=== PATIENT | male | born 1955 | race Hispanic/Latino ===

== ENCOUNTER 2016-12-06 03:38 | Observation (INO) | payer MEDICARE, BC ==
[2016-12-06 03:52] VITALS: BP 122/74; PULSE 95; RESP 20; O2SAT 97
[2016-12-06] MEDS ORDERED: Sodium Chloride 0.9% 2,000 ML IV STA (04:21)
[2016-12-06 04:50] LABS: BASO % 0.8 % (0.0-2.0); EOS # 0.1 K/uL (0.0-0.7); HEMOGLOBIN 14.7 g/dL (12.0-18.0); LYMPH # 1.6 K/uL (1.0-4.3); LYMPH % 27.6 % (20.0-40.0); MEAN CELL VOLUME 86.9 fl (80.0-94.0); MEAN CORPUSCULAR HEMOGLOBIN 29.5 pg (27.0-31.0); MEAN PLATELET VOLUME 8.1 fl (7.2-11.7); MONO # 0.4 K/uL (0.0-0.8); MONO % 7.5 % (0.0-10.0); NEUT # 3.5 K/uL (1.8-7.0); NEUT % 62.1 % (50.0-75.0); NRBC % 0.1 % (0.0-0.0); RBC 4.96 Mil/uL (4.40-5.90); RED CELL DISTRIBUTION WIDTH 15.7 % (11.5-14.5); WHITE BLOOD COUNT 5.6 K/uL (4.8-10.8)
[2016-12-06 05:01] LABS: BLOOD UREA NITROGEN 11 mg/dl (9-20); CALCIUM 9.2 mg/dL (8.4-10.2); GFR AFRICAN-AMERICAN > 60; GFR NON-AFRICAN AMERICAN > 60
--- NOTE | 2016-12-06 05:05 | ED PDOC ---
HPI: Psych/Substance Abuse Time Seen by Provider: 12/06/16 03:50 Chief Complaint (Nursing): Alcohol Ingestion Chief Complaint (Provider): Alcohol withdrawal History Per: Patient History/Exam Limitations: no limitations Additional Complaint(s): Juan C Heath, a 61 year old male, who is an alcoholic and has a past medical history of diabetes and presents to the ED for alcohol withdrawal. The patient states that he drinks three 6 packs of beer a day but his last drink was yesterday at 8pm. He states that he normally take ativan but he ran out and was unable to get a refill in the middle of the night. Denies homicidal, suicidal ideation. Past Medical History Reviewed: Historical Data, Nursing Documentation, Vital Signs Vital Signs: Last Vital Signs Temp 100.2 F H 12/06/16 03:48 Pulse 95 H 12/06/16 03:48 Resp 20 12/06/16 03:48 BP 122/74 12/06/16 03:48 Pulse Ox 97 12/06/16 03:48 - Medical History PMH: Anxiety, Bipolar Disorder, Depression, Diabetes, Gall Bladder Disease (s/p Lap Jessica), HTN, Hypercholesterolemia Denies: HIV, Chronic Kidney Disease - Surgical History Surgical History: Cholecystectomy - Family History Family History: States: Unknown Family Hx - Immunization History Hx Tetanus Toxoid Vaccination: No Hx Influenza Vaccination: Yes Hx Pneumococcal Vaccination: No - Home Medications Home Medications: Ambulatory Orders Medication Instructions Recorded Exenatide Microspheres [Bydureon] 2 mg SC Q7D #0 joseph 04/08/15 Folic Acid 1 mg PO DAILY #0 tab 04/08/15 Gabapentin 800 mg PO BID #0 tab 04/08/15 Gabapentin [Neurontin] 800 mg PO BID #0 cap 04/08/15 Insulin Detemir [Levemir] 25 units SC HS #0 vial 04/08/15 Multivitamin [Multi-Delyn Liquid] 5 ml PO DAILY #0 syr 04/08/15 QUEtiapine [SEROquel] 50 mg PO HS #0 tab 04/08/15 Thiamine [Vitamin B1 Tab] 100 mg PO DAILY #0 tab 04/08/15 chlordiazePOXIDE [Librium] 10 mg PO Q8 #0 cap 04/08/15 cloNIDine [Catapres] 0.1 mg PO Q12 #0 tab 04/08/15 - Allergies Allergies/Adverse Reactions: Allergies Allergy/AdvReac Type Severity Reaction Status Date / Time No Known Allergies Allergy Verified 06/28/14 17:50 Review of Systems Psych: Positive for: Other (Denies homicidal ideations). Negative for: Suicidal ideation Physical Exam - Reviewed Nursing Documentation Reviewed: Yes Vital Signs Reviewed: Yes - Physical Exam Appears: Positive for: Non-toxic, No Acute Distress (Anxious appearing; tremulous) Head Exam: Positive for: ATRAUMATIC, NORMAL INSPECTION, NORMOCEPHALIC Skin: Positive for: Normal Color, Warm, Dry, Diaphoresis Eye Exam: Positive for: Normal appearance, EOMI, PERRL ENT: Negative for: Normal ENT Inspection (Tongue fasciculations) Neck: Positive for: Normal, Painless ROM, Supple Cardiovascular/Chest: Positive for: Regular Rate, Rhythm, Chest Non Tender. Negative for: Tachycardia Respiratory: Negative for: Normal Breath Sounds, Wheezing, Respiratory Distress Gastrointestinal/Abdominal: Positive for: Normal Exam, Bowel Sounds, Soft. Negative for: Tenderness, Guarding, Rebound Back: Positive for: Normal Inspection Extremity: Positive for: Normal ROM. Negative for: Tenderness, Pedal Edema, Deformity, Swelling Neurologic/Psych: Positive for: Alert, Oriented, Gait - Laboratory Results Result Diagrams: 12/06/16 04:46 12/06/16 04:46 - ECG O2 Sat by Pulse Oximetry: 97 (RA) Pulse Ox Interpretation: Normal Medical Decision Making Medical Decision Makin Initial impression: 61 year old male presenting with alcohol withdrawal Initial Plan: * Alcohol serum * Basic metabolic Panel * Urine Drug Screen * CBC * Ativan 2mg IVP * Librium 50mg PO * NS 2000mls IV 1000mls/hr * Reevaluation 630 Pt. no longer tremulous. Vitals improved. Referral to detox facilities given. Return precautions given. Scribe Attestation Documented by Marium Parrish acting as a scribe for Zachary Hyman MD. Provider Attestation All medical record entries made by the Scribe were at my direction and personally dictated by me. I have reviewed the chart and agree that the record accurately reflects my personal performance of the history, physical exam, medical decision making, and the department course for this patient. I have also personally directed, reviewed, and agree with the discharge instructions and disposition. Disposition - Clinical Impression Clinical Impression: Alcohol dependence with withdrawal - Disposition Referrals: Keith Márquez MD [Primary Care Provider] - Alcoholics Anonymous [Outside] Disposition: Routine/Home Disposition Time: 06:39 Condition: IMPROVED Instructions: Alcohol Withdrawal (ED), Abuse of Alcohol (ED)
[2016-12-06 06:51] VITALS: TEMP 98.3
--- NOTE | 2016-12-13 10:40 | CARD ---
APPROVED REPORT EKG Measurement Heart [id number] CO 118P50 [id number] <Conclusion> Normal sinus rhythm Nonspecific T wave abnormality Prolonged QT Abnormal ECG
== END 2016-12-06 06:57 | disposition home or self-care (01) ==
LOC: H.ER 03:38 → H.EROBSV 04:21
PROVIDERS: ADMIT Emergency Medicine; ATTEND Emergency Medicine
DX: F10.239 Alcohol dependence with withdrawal, unspecified (principal); E11.9 Type 2 diabetes mellitus without complications; E78.00 Pure hypercholesterolemia, unspecified; F31.9 Bipolar disorder, unspecified; I10 Essential (primary) hypertension; F32.9 Major depressive disorder, single episode, unspecified; F41.9 Anxiety disorder, unspecified; K82.9 Disease of gallbladder, unspecified; Z79.4 Long term (current) use of insulin; Z79.899 Other long term (current) drug therapy
CPT/HCPCS: 80048; 85025; 96361; 96374; 99282; G0378; G0480; J2060; J7040

== ENCOUNTER 2016-12-29 06:03 | Inpatient (IN) | payer MEDICARE, BC ==
[2016-12-29 06:04] VITALS: BMI 28.1
--- NOTE | 2016-12-29 06:39 | ED PDOC ---
HPI: Psych/Substance Abuse Time Seen by Provider: 12/29/16 06:15 Chief Complaint (Nursing): Psychiatric Evaluation Chief Complaint (Provider): Alcohol Withdrawal and Suicidal Ideatons History Per: Patient History/Exam Limitations: no limitations Current Symptoms Are (Timing): Still Present Additional Complaint(s): Juan C Heath, a 61 yea old male who has a past medical history of alcohol abuse and depression presents to the ED for withdrawal and suicidal ideations x1 day. The patient states that he drinks alot of alcohol everyday and his last drink was 10 hours ago. Patient is complaining of feeling dizzy, shaky and sweaty. He states that he thinks he's withdrawing and had suicidal thoughts today. the patient reports that he had intentions take to take sleeping pills but did not have any pills at home. PMD: Dr. Márquez Past Medical History Reviewed: Historical Data, Nursing Documentation, Vital Signs Vital Signs: Last Vital Signs Temp 98.0 F 12/29/16 06:10 Pulse 91 H 12/29/16 06:10 Resp 18 12/29/16 06:10 BP 159/82 H 12/29/16 06:10 Pulse Ox 98 12/29/16 06:10 - Medical History PMH: Anxiety, Bipolar Disorder, Depression, Diabetes, Gall Bladder Disease (s/p Lap Jessica), HTN, Hypercholesterolemia Denies: Hepatitis, HIV, Chronic Kidney Disease, Seizures, Sexually Transmitted Disease Other PMH: Alcohol abuse - Surgical History Surgical History: Cholecystectomy Other surgeries: left ear surgery; thoracic surgery - Family History Family History: States: Unknown Family Hx - Immunization History Hx Tetanus Toxoid Vaccination: No Hx Influenza Vaccination: Yes Hx Pneumococcal Vaccination: No - Home Medications Home Medications: Ambulatory Orders Medication Instructions Recorded QUEtiapine [SEROquel] 50 mg PO HS #0 tab 04/08/15 Insulin Aspart [Novolog] 15 unit SC TID 12/06/16 Insulin Detemir [Levemir] 50 units SC HS 12/06/16 Gabapentin [Neurontin] 400 mg PO TID #90 cap 12/13/16 Sertraline [Zoloft] 100 mg PO DAILY #60 tab 12/13/16 traZODone [Desyrel] 100 mg PO HS #30 tab 12/13/16 - Allergies Allergies/Adverse Reactions: Allergies Allergy/AdvReac Type Severity Reaction Status Date / Time No Known Allergies Allergy Verified 12/06/16 07:35 Review of Systems ROS Statement: Except As Marked, All Systems Reviewed And Found Negative Constitutional: Positive for: Sweats, Other (Withdrawal) Neurological: Positive for: Dizziness Psych: Positive for: Suicidal ideation Physical Exam - Reviewed Nursing Documentation Reviewed: Yes Vital Signs Reviewed: Yes - Physical Exam Appears: Positive for: Non-toxic, No Acute Distress Head Exam: Positive for: ATRAUMATIC, NORMAL INSPECTION, NORMOCEPHALIC Skin: Positive for: Normal Color, Warm, Dry, Diaphoresis Eye Exam: Positive for: Normal appearance, EOMI, PERRL ENT: Positive for: Normal ENT Inspection Neck: Positive for: Normal, Supple Cardiovascular/Chest: Positive for: Chest Non Tender. Negative for: Tachycardia Respiratory: Positive for: Normal Breath Sounds. Negative for: Wheezing, Respiratory Distress Gastrointestinal/Abdominal: Positive for: Normal Exam, Bowel Sounds, Soft. Negative for: Tenderness, Guarding, Rebound Back: Positive for: Normal Inspection Extremity: Positive for: Normal ROM. Negative for: Tenderness, Pedal Edema, Deformity, Swelling Neurologic/Psych: Positive for: Alert, Oriented, Gait, Other (Tremors in upper extremities.). Negative for: Motor/Sensory Deficits - ECG O2 Sat by Pulse Oximetry: 98 (RA) Pulse Ox Interpretation: Normal Medical Decision Making Medical Decision Makin Initial Impression: 61 year old male presenting with alcohol withdrawal and suicidal ideation Initial Plan: * EKG * Alcohol Serum * Comp Metabolic Panel * Drug Screen * Udip * CBC * Ativan 2g IV * 1:1 Observation * Reevaluation Patient will require medical clearance, treatment of withdrawals and crisis evaluation for possible psychiatric admission. Scribe Attestation Documented by Marium Parrish acting as a scribe for Jacoby Masters MD. Provider Attestation: All medical record entries made by the Scribe were at my direction and personally dictated by me. I have reviewed the chart and agree that the record accurately reflects my personal performance of the history, physical exam, medical decision making, and the department course for this patient. I have also personally directed, reviewed, and agree with the discharge instructions and disposition. Disposition - Clinical Impression Clinical Impression: Alcohol withdrawal, Alcohol abuse, Depression - Patient ED Disposition Is Patient to be Admitted: Transfer of Care Counseled Patient/Family Regarding: Studies Performed, Diagnosis - Disposition Disposition: Transfer of Care Disposition Time: 07:00 Condition: FAIR Forms: [employer] (Serbian) Patient Signed Over To: Hoa Montaño
[2016-12-29] MEDS ORDERED: Sodium Chloride 0.9% 1,000 ML IV STA (06:58)
--- NOTE | 2016-12-29 07:04 | ED PDOC ---
- ECG O2 Sat by Pulse Oximetry: 98 (RA) Medical Decision Making Medical Decision Making: received patient from Dr. Masters. Patient has h/o chronic alcohol use who has had history of admission for withdrawal and depression. He c/o suicidal ideations. He is pending medical clearance for crisis evaluation. He was given Ativan for shakiness. Disposition - Clinical Impression Clinical Impression: Alcohol withdrawal, Alcohol abuse, Depression - Disposition Condition: FAIR Forms: [employer] (Eritrean)
[2016-12-29 07:23] LABS: BASO % 0.3 % (0.0-2.0); EOS # 0.2 K/uL (0.0-0.7); EOS % 3.2 % (0.0-4.0); HEMOGLOBIN 13.7 g/dL (12.0-18.0); LYMPH # 1.1 K/uL (1.0-4.3); LYMPH % 17.1 % (20.0-40.0); MEAN CELL VOLUME 85.4 fl (80.0-94.0); MEAN CORPUSCULAR HEMOGLOBIN 29.2 pg (27.0-31.0); MEAN CORPUSCULAR HGB CONC 34.2 g/dL (33.0-37.0); MEAN PLATELET VOLUME 8.8 fl (7.2-11.7); MONO # 0.4 K/uL (0.0-0.8); MONO % 6.4 % (0.0-10.0); NEUT # 4.7 K/uL (1.8-7.0); NRBC % 0.1 % (0.0-0.0); RBC 4.68 Mil/uL (4.40-5.90); RED CELL DISTRIBUTION WIDTH 14.7 % (11.5-14.5); WHITE BLOOD COUNT 6.5 K/uL (4.8-10.8)
[2016-12-29 07:40] LABS: ALB/GLOB RATIO 1.6 (1.0-2.1); ALBUMIN 4.3 g/dL (3.5-5.0); ALT/SGPT 70 U/L (21-72); AST/SGOT 32 U/L (17-59); BLOOD UREA NITROGEN 9 mg/dl (9-20); CALCIUM 10.1 mg/dL (8.4-10.2); GFR AFRICAN-AMERICAN > 60; GFR NON-AFRICAN AMERICAN > 60
[2016-12-29 08:29] LABS: BARBITURATES, UR NEGATIVE (NEGATIVE); BENZODIAZEPINES, UR NEGATIVE (NEGATIVE); OPIATES, UR NEGATIVE (NEGATIVE); PHENCYCLIDINE, UR NEGATIVE (NEGATIVE)
[2016-12-29 13:14] VITALS: O2SAT 96
--- NOTE | 2016-12-29 13:28 | RAD ---
PROCEDURE: CHEST RADIOGRAPH, 1 VIEW HISTORY: for admission COMPARISON: 07/16/2014. FINDINGS: LUNGS: Clear. PLEURA: No pneumothorax or pleural fluid seen. CARDIOVASCULAR: No radiographic findings to suggest acute or significant cardiovascular disease. OSSEOUS STRUCTURES: No significant abnormalities. VISUALIZED UPPER ABDOMEN: Normal. OTHER FINDINGS: None. IMPRESSION: No active disease. No acute/significant interval changes.
[2016-12-29] MEDS: Insulin Detemir 100 Units/ml Inj SC SCH (21:58)
[2016-12-30 07:41] LABS: HDL CHOLESTEROL 47 MG/DL (30-70)
[2016-12-30 07:52] LABS: LDL CHOLESTEROL 117 mg/dL (0-129)
[2016-12-30] MEDS ORDERED: INSULIN ASPART 10 UNIT SC SCH (09:00)
[2016-12-30] MEDS: Insulin Lispro (humaLOG) 100 Units/ml Inj SC SCH ×3 (09:45→17:37)
--- NOTE | 2016-12-30 11:15 | PCM.PSYCH ---
Initial Psychiatric Evaluation - Initial Psychiatric Evaluation Type of Admission: Voluntary Legal Status: Capacity Chief Complaint (in patient's own words): "I've been feeling depressed." Patient's Reaction to Hospitalization: HPI: 61 year old, Single, , Male referred to ED for Anxiety, Suicidal Thoughts with a plan, and Alcohol Withdrawal. In the ER, pt admitted to drinking seven bottles of 24 oz Harriosn last night in order to kill himself, and had an active plan of taking over the counter sleeping pills in order to .Pt stated that he has a long history of Depression. Pt stated that 02/05 has had a traumatic impact on him as well as flashbacks since he worked a [place] blocks from the [employer], and ever since 02/05, pt reported feeling trapped and always feel like he is in danger. Pt stated that his cat a few years ago, and ever since his cats , he has been having flashbacks of the times spent with his cat and feels responsibility for his cats . Patient reports that he was non-complaint with medications because he did not want to mix the alcohol w/ the medications. PPHx: Pt was admitted at [facility] from 04/29-05/06 and 07/16/2014. Admitted to [facility] from 12/07/16-12/13/16. H/o suicide attempts- As per patient, he has ingested 64 pills of sleeping pills over five years ago which he almost succeeded, and has taken aspirin at the age of [age] years old. 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 On disability. Lives alone. +Alcohol abuse, denies drug/ cig. Current Medications: Active Medications Generic Name Dose Route Start Last Admin Trade Name Freq PRN Reason Stop Dose Admin Acetaminophen 650 mg 12/29/16 16:29 Tylenol 325mg Tab PO Q6 PRN headache/pain Atorvastatin Calcium 20 mg 12/29/16 22:00 12/29/16 21:58 Lipitor PO 20 mg HS JM Administration Benztropine Mesylate 0.5 mg 12/29/16 17:00 12/30/16 09:05 Cogentin PO 0.5 mg BID JM Administration Gabapentin 800 mg 12/29/16 21:15 12/30/16 09:05 Neurontin PO 800 mg BID JM Administration Insulin Detemir 30 units 12/29/16 22:00 12/29/16 21:58 Levemir SC 30 unit HS [facility] Administration Insulin Human Lispro 10 units 12/30/16 09:15 Humalog SC TID [facility] Lorazepam 0.5 mg 12/29/16 16:29 12/29/16 23:26 Ativan PO 0.5 mg Q6 PRN Administration Anxiety Risperidone 1 mg 12/29/16 17:00 12/30/16 09:04 Risperdal Tab PO 1 mg BID JM Administration Sertraline HCl 200 mg 12/30/16 09:00 12/30/16 09:07 Zoloft PO 200 mg DAILY JM Administration Past Psychiatric History - Past Psychiatric History Previous Treatment History: Inpatient Pertinent Medical Hx (Current Medical&Sleep Prob, Allergies): Allergies Allergy/AdvReac Type Severity Reaction Status Date / Time No Known Allergies Allergy Verified 12/06/16 07:35 Insulin Aspart [Novolog] 20 unit SC TID 12/06/16 Insulin Detemir [Levemir] 50 units SC HS 12/06/16 Atorvastatin [Lipitor] 20 mg PO HS 12/29/16 Benztropine [Cogentin] 0.5 mg PO BID 12/29/16 Exenatide Microspheres [Bydureon Pen] 2 mg SC SAT 12/29/16 Gabapentin [Neurontin] 800 mg PO BID 12/29/16 LORazepam [Ativan] 1 mg PO BID 12/29/16 Mecobal/Levomefolat Ca/B6 Phos [Foltanx Tablet] 1 tab PO DAILY 12/29/16 Risperidone [Risperdal] 1 mg PO BID 12/29/16 Sertraline [Zoloft] 100 mg PO BID 12/29/16 hydrOXYzine HCl [Atarax] 50 mg PO HS 12/29/16 Review of Systems - Psychiatric Psychiatric: As Per HPI, Abnormal Sleep Pattern, Anhedonia, Anxiety, Change in Appetite, Depression, Difficulty Concentrating, Hopelessness, Irritability, Mood Swings, Suicidal Ideation Mental Status Examination - Personal Presentation Personal Presentation: Looks stated age - Affect Affect: Constricted - Motor Activity Motor Activity: Calm - Reliability in Providing Information Reliability in Providing Information: Good - Speech Speech: Organized - Mood Mood: Depressed, Anxious - Formal Thought Process Formal Thought Process: No Impairment - Obsessions/Compulsions Obsessions: No Compulsions: No - Cognitive Functions Orientation: Person, Place, Situation, Time Sensorium: Alert Attention/Concentration: Attentive Judgement: Intact, as evidence by: Insight regarding need for hospitalization Memory: Recent intact, as evidence by: Ability to recall events of the day, Remote intact, as evidenced by: Abilit to recall sig. life events, Remote intact , as evidenced by: Ability to recall historical events - Risk Risk: Withdrawal, Diminished functioning - Strength & Assets Inventory Strength & Assets Inventory: Cooperative - Limitations Limitations: Living alone DSM 5 DX - DSM 5 DSM 5 Diagnosis: Major Depressive Disorder r/o substance induced mood disorder; Generalized Anxiety Disorder; Alcohol Use Disorder - Recommended/Plan of Treatment Treatment Recommendations and Plan of Treatment: Major Depressive Disorder r/o substance induced mood disorder; Generalized Anxiety Disorder; Alcohol Use Disorder -Admit to psychiatry -Ativan for ETOH w/drawal; no current symptoms of ETOH w/drawal -Zoloft 200 mg PO Daily -Trazodone 100 mg PO HS -Hospitalist consult -Individual and group therapy -Disposition planning -No 1:1 indicated at this time Projected ELOS: 3-5 days Discharge Plan and Discharge Criteria: Discharge when psychiatrically stable - Smoking Cessation Smoking Cessation Initiated: No Reason for not providing: Not indicated
--- NOTE | 2016-12-30 14:26 | CARD ---
APPROVED REPORT EKG Measurement Heart [id number] 118P24 [id number] <Conclusion> Normal sinus rhythm Normal ECG artefact present
--- NOTE | 2016-12-30 19:18 | CP.PCM.CON ---
History of Present Illness - History of Present Illness History of Present Illness: 61 year old male PMH IDDM, generalized anxiety disorder, prior suicide attempts , L ear hearing loss, admitted to psych for depression, suicide attempt and alcohol abuse. HD stable NAD PMD: Dr. Márqeuz ROS: per HPI, 14 systems reviewed and negative PMH: IDDM, generalized anxiety disorder, prior suicide attempt, L ear hearing loss, PSH: benign lung mass excision, L ear FH: CAD, VT SH: ETOH 15 year history of 2 24oz beers daily, in addition to rum on occasion. Has been admitted to Rehab Allergies: NKDA Meds: as below Vitals: reviewed and currently stable Temp Pulse Resp BP Pulse Ox 97.9 F 86 18 135/81 96 12/30/16 16:11 12/30/16 16:11 12/30/16 16:11 12/30/16 16:11 12/29/16 13:13 Exam: GEN: WDWN, HEENT: NCAT, PERRL, EOMI NECK: supple, no JVD, no lymphadenopathy CARDIAC: +S1S2 RRR LUNG: CTAB No WRR ABD: SOFT NT ND BSX4 NO MASSES NO HSM EXT: +pedal pulses, equal strength NEURO: AAOx3 SKIN warm, dry PSYCH normal mood, normal affect Labs: 12/29/16 07:21 12/29/16 07:21 Assessment and Plan: 61 year old male PMH IDDM, generalized anxiety disorder, prior suicide attempts , L ear hearing loss, admitted to psych for depression, suicide attempt and alcohol abuse. IDDM accuchecks cont ISS Depression and SI management per psychiatry team Past Patient History - Tetanus Immunizations Tetanus Immunization: Unknown - Past Medical History & Family History Past Medical History?: Yes - Past Social History Smoking Status: Never Smoked - CARDIAC Hx Cardiac Disorders: Yes Hx Hypercholesterolemia: Yes Hx Hypertension: Yes - PULMONARY Hx Respiratory Disorders: Yes Hx Bronchitis: Yes Hx Tuberculosis: No - NEUROLOGICAL Hx Neurological Disorder: No HX Cerebrovascular Accident: No Hx Seizures: No - HEENT Hx Deafness: Yes (left ear, very [place]) - RENAL Hx Chronic Kidney Disease: No - ENDOCRINE/METABOLIC Hx Endocrine Disorders: Yes Hx Diabetes Mellitus Type 2: Yes - HEMATOLOGICAL/ONCOLOGICAL Hx Cancer: No Hx Human Immunodeficiency Virus (HIV): No - INTEGUMENTARY Hx Dermatological Problems: No - MUSCULOSKELETAL/RHEUMATOLOGICAL Hx Falls: No - GASTROINTESTINAL Hx Gall Bladder Disease: Yes (s/p Lap Jessica) Hx Gastritis: Yes - GENITOURINARY/GYNECOLOGICAL Hx Genitourinary Disorders: No Hx Sexually Transmitted Disorders: No - PSYCHIATRIC Hx Substance Use: No - SURGICAL HISTORY Hx Cholecystectomy: Yes - ANESTHESIA Hx Anesthesia: Yes Hx Anesthesia Reactions: No Meds Allergies/Adverse Reactions: Allergies Allergy/AdvReac Type Severity Reaction Status Date / Time No Known Allergies Allergy Verified 12/06/16 07:35 - Medications Medications: Current Medications Acetaminophen (Tylenol 325mg Tab) 650 mg PO Q6 PRN PRN Reason: headache/pain Atorvastatin Calcium (Lipitor) 20 mg PO [facility] Last Admin: 12/29/16 21:58 Dose: 20 mg Gabapentin (Neurontin) 800 mg PO BID [facility] Last Admin: 12/30/16 17:36 Dose: 800 mg Insulin Detemir (Levemir) 30 units SC [facility] Last Admin: 12/29/16 21:58 Dose: 30 unit Insulin Human Lispro (Humalog) 10 units SC TID [facility] Last Admin: 12/30/16 17:37 Dose: 10 unit Lorazepam (Ativan) 0.5 mg PO Q6 PRN PRN Reason: Anxiety Last Admin: 12/29/16 23:26 Dose: 0.5 mg Lorazepam (Ativan) 0.5 mg PO TID [facility] Last Admin: 12/30/16 17:36 Dose: 0.5 mg Sertraline HCl (Zoloft) 200 mg PO DAILY [facility] Last Admin: 12/30/16 09:07 Dose: 200 mg Trazodone HCl (Desyrel) 100 mg PO [facility] Results - Vital Signs Recent Vital Signs: Last Vital Signs Temp 97.9 F 12/30/16 16:11 Pulse 86 12/30/16 16:11 Resp 18 12/30/16 16:11 BP 135/81 12/30/16 16:11 Pulse Ox 96 12/29/16 13:13 - Labs Result Diagrams: 12/29/16 07:21 12/29/16 07:21 Labs: Laboratory Results - last 24 hr 12/29/16 12/30/16 12/30/16 20:25 05:30 05:59 POC Glucose (mg/dL) 201 H 169 H Triglycerides 431 H Cholesterol 209 H LDL Cholesterol Direct 117 HDL Cholesterol 47 12/30/16 12/30/16 12:15 15:53 POC Glucose (mg/dL) 168 H 100 Triglycerides Cholesterol LDL Cholesterol Direct HDL Cholesterol
[2016-12-30] MEDS: Insulin Detemir 100 Units/ml Inj SC SCH (21:21)
[2016-12-31 05:31] VITALS: RESP 20
[2016-12-31] MEDS: Insulin Lispro (humaLOG) 100 Units/ml Inj SC SCH ×3 (08:35→16:48)
--- NOTE | 2016-12-31 12:14 | PCM.PYCHPN ---
Psychiatric Progress Note - Psychiatric Progress Note Patient seen today, length of contact: Patient evaluated, case discussed with team, chart reviewed, 35 min Patient Chief Complaint: "I'm feeling better." Problems Identified/Issues Discussed: Patient reports that his depression and anxiety are improving. Psychoeducation provide re: alcohol abuse. NO SI/HI/AH/VH Medication Change: No Medical Record Reviewed: Yes Mental Status Examination - Cognitive Function Orientation: Person, Place, Situation, Time Memory: Intact Attention: WNL Concentration: WNL Association: WNL Fund of Knowledge: WNL - Mood Mood: Depressed, Anxious - Affect Affect: Broad - Formal Thought Process Formal Thought Process: No Impairment Psychotic Thoughts and Behaviors: NO AH/VH/paranoia/delusions. - Suicidal Ideation Suicidal Ideation: No - Homicidal Ideation Homicidal Ideation: No Goal/Treatment Plan - Goal/Treatment Plan Need for Continued Stay: Remain at risks for inpatient hospitalization, Severe depression anxiety Progress Toward Problem(s) and Goals/Treatment Plan: Major Depressive Disorder r/o substance induced mood disorder; Generalized Anxiety Disorder; Alcohol Use Disorder -Ativan for ETOH w/drawal; no current symptoms of ETOH w/drawal -Zoloft 200 mg PO Daily -Trazodone 100 mg PO HS -Hospitalist consult -Individual and group therapy -Disposition planning -No 1:1 indicated at this time Estimated Date of D/C: 01/01/17
[2016-12-31] MEDS: Insulin Detemir 100 Units/ml Inj SC SCH (21:12)
[2017-01-01 05:53] VITALS: BP 104/72; PULSE 69; TEMP 97.7
[2017-01-01] MEDS: Insulin Lispro (humaLOG) 100 Units/ml Inj SC SCH ×2 (08:34→12:27)
--- NOTE | 2017-01-01 08:45 | PCM.PYCHDC ---
Mental Status Examination - Mental Status Examination Orientation: Person, Place, Situation, Time Memory: Intact Mood: Neutral Affect: Broad Speech: Appropriate Attention: WNL Concentration: WNL Association: WNL Fund of Knowledge: WNL Formal Thought Process: No Impairment Description of patient's judgement and insight: Fair I/J Psychotic Thoughts and Behaviors: NO AH/VH/paranoia/delusions. Suicidal Ideation: No Current Homicidal Ideation?: No Discharge Summary - Discharge Note Reason for Hospitalization: HPI: 61 year old, Single, , Male referred to ED for Anxiety, Suicidal Thoughts with a plan, and Alcohol Withdrawal. In the ER, pt admitted to drinking seven bottles of 24 oz Harrison last night in order to kill himself, and had an active plan of taking over the counter sleeping pills in order to .Pt stated that he has a long history of Depression. Pt stated that 02/05 has had a traumatic impact on him as well as flashbacks since he [place] from [place] [employer], and ever since 02/05, pt reported feeling trapped and always feel like he is in danger. Pt stated that his cat a few years ago, and ever since his cats , he has been having flashbacks of the times spent with his cat and feels responsibility for his cats . Patient reports that he was non-complaint with medications because he did not want to mix the alcohol w/ the medications. PPHx: Pt was admitted at [facility] from 04/29-05/06 of 2013 and 07/16/2014. Admitted to [facility] from 12/07/16-12/13/16. H/o suicide attempts- As per patient, he has ingested 64 pills of sleeping pills over five years ago which he almost succeeded, and has taken aspirin at the age of [age] years old. 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 On disability. Lives alone. +Alcohol abuse, denies drug/ cig. Laboratory Data: Abnormal Lab Results 12/31/16 12/31/16 12/31/16 10:58 15:21 20:10 POC Glucose (mg/dL) 178 H 159 H 90 Consultations:: List each consultation separately and include: 1. Reason for request. 2. Findings. 3. Follow-up Consultations: Medicine consult Summary of Hospital Course include:: 1. Description of specific treatment plan utilized for patients during their course of treatmen. 2. Summarize the time- course for resolution of acute symptoms and/or regressed behaviors. 3. Describe issues identified and worked on during hospitalization. 4. Describe medication utilized. 5. Describe medical problems identified and treated. 6. Reassessment of suicide risk Summary of Hospital Course: Patient admitted to the hospital. He was monitored for ETOH w/drawal. He was stabilized on Zoloft 200 mg PO Daily, Trazodone 100 mg PO HS. Individual and group therapy provided. Patient is currently psychiatrically stable for discharge. - Final Diagnosis (DSM 5) Condition upon Discharge: FAIR DSM 5: Major Depressive Disorder, Alcohol Use Disorder, Generalized Anxiety Disorder Disposition: HOME/ ROUTINE Follow-up Treatment Plan: Major Depressive Disorder r/o substance induced mood disorder; Generalized Anxiety Disorder; Alcohol Use Disorder -Zoloft 200 mg PO Daily -Trazodone 100 mg PO HS -Discharge w/ outpatient follow-up Prescriptions/Medication Reconciliation: Sertraline [Zoloft] 200 mg PO DAILY #60 tab traZODone [Desyrel] 100 mg PO HS #30 tab - Smoking Cessation Smoking Cessation Medication prescribed: No Reason for not providing: Not indicated - Antipsychotic Medications Pt discharged on 2 or more routine antipsychotic medications: No
== END 2017-01-01 13:03 | disposition home or self-care (01) | DRG 881 ==
LOC: H.ER 06:03 → H.ERHOLD 12:17 → H.STEP 14:29
PROVIDERS: ADMIT Psychiatry & Neurology Psychiatry; ATTEND Psychiatry & Neurology Psychiatry
PROC: HZ56ZZZ Individual Psychotherapy for Substance Abuse Treatment, Psychoeducation (ICD-10-PCS; principal; 2016-12-29)
DX: F32.9 Major depressive disorder, single episode, unspecified (principal); R45.851 Suicidal ideations; G62.9 Polyneuropathy, unspecified; E11.9 Type 2 diabetes mellitus without complications; I10 Essential (primary) hypertension; Z79.4 Long term (current) use of insulin; F41.1 Generalized anxiety disorder; H91.92 Unspecified hearing loss, left ear; E78.00 Pure hypercholesterolemia, unspecified; N40.0 Benign prostatic hyperplasia without lower urinary tract symptoms; Z91.14 Patient's other noncompliance with medication regimen; Y90.0 Blood alcohol level of less than 20 mg/100 ml; Z72.89 Other problems related to lifestyle

== ENCOUNTER 2017-02-22 20:52 | Observation (INO) | payer MEDICARE, BC ==
[2017-02-22 20:52] VITALS: BMI 28.1
[2017-02-22 21:01] VITALS: RESP 18
--- NOTE | 2017-02-22 21:03 | ED PDOC ---
HPI: Psych/Substance Abuse Time Seen by Provider: 02/22/17 21:01 Chief Complaint (Nursing): Psychiatric Evaluation Chief Complaint (Provider): crisis eval, SI, etoh History Per: Patient, EMS Additional Complaint(s): 61 year old male presents to ED for crisis evaluation. Patient admits to drinking this evening and is having thoughts of wanting to harm himself. He also states he took 2 ativan at home. Patient offers no acute medical complaints. Past Medical History Reviewed: Historical Data, Nursing Documentation, Vital Signs Vital Signs: Last Vital Signs Temp 98.0 F 02/22/17 20:58 Pulse 119 H 02/22/17 20:58 Resp 18 02/22/17 20:58 BP 142/89 02/22/17 20:58 Pulse Ox 95 02/22/17 20:58 - Medical History PMH: Anxiety, Bipolar Disorder, Depression, Diabetes, Gastritis, HTN, Hypercholesterolemia - Surgical History Surgical History: Cholecystectomy Other surgeries: Left ear surgery, thoracic surgery - Family History Family History: States: No Known Family Hx - Living Arrangements Living Arrangements: With Family - Social History Current smoker - smoking cessation education provided: No Alcohol: > 2 Drinks/Day - Home Medications Home Medications: Ambulatory Orders Medication Instructions Recorded Insulin Aspart [Novolog] 20 unit SC TID 12/06/16 Insulin Detemir [Levemir] 50 units SC HS 12/06/16 Atorvastatin [Lipitor] 20 mg PO HS 12/29/16 Gabapentin [Neurontin] 800 mg PO BID 12/29/16 Sertraline [Zoloft] 200 mg PO DAILY #60 tab 12/31/16 traZODone [Desyrel] 100 mg PO HS #30 tab 12/31/16 - Allergies Allergies/Adverse Reactions: Allergies Allergy/AdvReac Type Severity Reaction Status Date / Time No Known Allergies Allergy Verified 12/06/16 07:35 Review of Systems ROS Statement: Except As Marked, All Systems Reviewed And Found Negative Cardiovascular: Negative for: Chest Pain Respiratory: Negative for: Cough Gastrointestinal: Negative for: Nausea, Vomiting Psych: Positive for: Suicidal ideation, Other (etoh) Physical Exam - Reviewed Nursing Documentation Reviewed: Yes Vital Signs Reviewed: Yes - Physical Exam Appears: Positive for: Well, Non-toxic, No Acute Distress Skin: Negative for: Rash Eye Exam: Positive for: Normal appearance, EOMI, PERRL Cardiovascular/Chest: Positive for: Regular Rate, Rhythm Respiratory: Positive for: Normal Breath Sounds. Negative for: Wheezing, Respiratory Distress Back: Positive for: Normal Inspection Extremity: Positive for: Normal ROM Neurologic/Psych: Positive for: Alert, Oriented - Laboratory Results Result Diagrams: 02/22/17 22:15 02/22/17 22:25 - ECG O2 Sat by Pulse Oximetry: 95 Pulse Ox Interpretation: Normal Medical Decision Making Medical Decision Makin year intoxicated male with suicidal ideation Plan: Admit to observation 1:1 bedside observation CBC CMP BAL UDS UA Crisis eval Disposition - Clinical Impression Clinical Impression: Alcohol intoxication, Suicidal ideation - Patient ED Disposition Is Patient to be Admitted: Transfer of Care - Disposition Disposition: Transfer of Care Disposition Time: 23:04 Condition: FAIR Patient Signed Over To: Lora Carmen Handoff Comments: Signed out pending crisis eval and final disposition Results - Lab Results Lab Results: 02/22/17 02/22/17 02/22/17 22:30 22:25 22:15 WBC 6.8 RBC 4.72 Hgb 14.0 Hct 41.3 MCV 87.4 D MCH 29.6 MCHC 33.8 RDW 14.3 Plt Count 156 MPV 8.7 Neut % (Auto) 52.8 Lymph % (Auto) 37.7 Lyman % (Auto) 7.4 Eos % (Auto) 1.6 Baso % (Auto) 0.5 Neut # 3.6 Lymph # 2.6 Lyman # 0.5 Eos # 0.1 Baso # 0.0 Sodium 141 Potassium 3.7 Chloride 97 L Carbon Dioxide 21 L Anion Gap 27 H BUN 17 Creatinine 0.7 L Est GFR ( Amer) > 60 Est GFR (Non-Af Amer) > 60 Random Glucose 206 H Calcium 9.4 Total Bilirubin 0.8 AST 60 H ALT 78 H Alkaline Phosphatase 83 Total Protein 7.6 Albumin 4.7 Globulin 3.0 Albumin/Globulin Ratio 1.6 Urine Opiates Screen Negative Urine Methadone Screen Negative Ur Barbiturates Screen Negative Ur Phencyclidine Scrn Negative Ur Amphetamines Screen Negative U Benzodiazepines Scrn Negative U Oth Cocaine Metabols Negative U Cannabinoids Screen Negative Alcohol, Quantitative 96 H
[2017-02-22 22:30] LABS: BASO % 0.5 % (0.0-2.0); EOS # 0.1 K/uL (0.0-0.7); EOS % 1.6 % (0.0-4.0); HEMATOCRIT 41.3 % (35.0-51.0); LYMPH # 2.6 K/uL (1.0-4.3); LYMPH % 37.7 % (20.0-40.0); MEAN CELL VOLUME 87.4 fl (80.0-94.0); MEAN CORPUSCULAR HEMOGLOBIN 29.6 pg (27.0-31.0); MEAN CORPUSCULAR HGB CONC 33.8 g/dL (33.0-37.0); MEAN PLATELET VOLUME 8.7 fl (7.2-11.7); MONO # 0.5 K/uL (0.0-0.8); MONO % 7.4 % (0.0-10.0); NEUT # 3.6 K/uL (1.8-7.0); NEUT % 52.8 % (50.0-75.0); NRBC % 0.2 % (0.0-0.0); RED CELL DISTRIBUTION WIDTH 14.3 % (11.5-14.5); WHITE BLOOD COUNT 6.8 K/uL (4.8-10.8)
[2017-02-22 22:39] LABS: URINE BILIRUBIN NEGATIVE (NEGATIVE); URINE BLOOD NEGATIVE (NEGATIVE); URINE COLOR YELLOW (YELLOW); URINE GLUCOSE (UA) >=500 mg/dL (Normal); URINE KETONE NEGATIVE (NEGATIVE); URINE LEUKOCYTE ESTERASE NEG Leu/uL (Negative); URINE PROTEIN NEGATIVE (NEGATIVE); URINE UROBILINOGEN 0.2-1.0 mg/dL (0.2-1.0); WBC URINE < 1 /hpf (0-5)
[2017-02-22 22:42] LABS: ALB/GLOB RATIO 1.6 (1.0-2.1); ALCOHOL SERUM 96 mg/dl (0-10); ALKALINE PHOSPHATASE 83 U/L (38-126); ALT/SGPT 78 U/L (21-72); AST/SGOT 60 U/L (17-59); BILIRUBIN,TOTAL 0.8 mg/dl (0.2-1.3); BLOOD UREA NITROGEN 17 mg/dl (9-20); CALCIUM 9.4 mg/dL (8.4-10.2); CARBON DIOXIDE 21 mmol/L (22-30); CHLORIDE 97 mmol/L (98-107); GFR AFRICAN-AMERICAN > 60; GLUCOSE,RANDOM 206 mg/dL (75-110); POTASSIUM 3.7 MMOL/L (3.6-5.0); SODIUM 141 mmol/l (132-148); TOTAL PROTEIN 7.6 G/DL (6.3-8.2)
[2017-02-22 23:16] LABS: RBC URINE < 1 /hpf (0-3)
--- NOTE | 2017-02-23 01:16 | ED PDOC ---
- Laboratory Results Result Diagrams: 02/22/17 22:15 02/22/17 22:25 - ECG O2 Sat by Pulse Oximetry: 95 - Progress ED Course And Treament: Case endorsed to keno writer/runner from Elvin DAVALOS pending crisis eval Patient evaluated by conservation worker; does not meet criteria for admission as per Dr. Michael. Information given for outpatient follow up. Return to ED for worsening/concernings symptoms. Disposition - Clinical Impression Clinical Impression: Alcohol intoxication, Depression - POA Present On Arrival: Poor Glycemic Control - Disposition Disposition: Routine/Home Disposition Time: 01:16 Condition: STABLE
[2017-02-23 02:21] VITALS: BP 132/78; PULSE 96; TEMP 98.9; O2SAT 98
== END 2017-02-23 02:20 | disposition home or self-care (01) ==
LOC: H.ER 20:52 → H.EROBSV 21:01
PROVIDERS: ADMIT Emergency Medicine; ATTEND Emergency Medicine
DX: F10.129 Alcohol abuse with intoxication, unspecified (principal); Y90.4 Blood alcohol level of 80-99 mg/100 ml; E11.9 Type 2 diabetes mellitus without complications; E78.00 Pure hypercholesterolemia, unspecified; F31.9 Bipolar disorder, unspecified; I10 Essential (primary) hypertension; F41.9 Anxiety disorder, unspecified; K29.70 Gastritis, unspecified, without bleeding; R45.851 Suicidal ideations
CPT/HCPCS: 36415; 80053; 81003; 85025; 99282; G0378; G0480

== ENCOUNTER 2017-02-24 17:45 | Inpatient (IN) | payer MEDICARE, BC ==
[2017-02-24 17:46] VITALS: BMI 28.1
[2017-02-24] MEDS ORDERED: Sodium Chloride 0.9% 1,000 ML IV STA ×2 (18:25)
[2017-02-24 18:26] LABS: BASO % 0.4 % (0.0-2.0); EOS # 0.2 K/uL (0.0-0.7); HEMATOCRIT 43.4 % (35.0-51.0); LYMPH # 1.7 K/uL (1.0-4.3); LYMPH % 31.5 % (20.0-40.0); MEAN CELL VOLUME 87.9 fl (80.0-94.0); MEAN CORPUSCULAR HEMOGLOBIN 29.6 pg (27.0-31.0); MEAN CORPUSCULAR HGB CONC 33.7 g/dL (33.0-37.0); MEAN PLATELET VOLUME 8.8 fl (7.2-11.7); MONO # 0.5 K/uL (0.0-0.8); MONO % 8.5 % (0.0-10.0); NEUT # 3.1 K/uL (1.8-7.0); NEUT % 56.6 % (50.0-75.0); RBC URINE 2 /hpf (0-3); RED CELL DISTRIBUTION WIDTH 14.3 % (11.5-14.5); URINE BILIRUBIN NEGATIVE (NEGATIVE); URINE BLOOD NEGATIVE (NEGATIVE); URINE COLOR STRAW (YELLOW); URINE GLUCOSE (UA) >=500 mg/dL (Normal); URINE KETONE NEGATIVE (NEGATIVE); URINE LEUKOCYTE ESTERASE NEG Leu/uL (Negative); URINE PROTEIN NEGATIVE (NEGATIVE); URINE UROBILINOGEN 0.2-1.0 mg/dL (0.2-1.0); WHITE BLOOD COUNT 5.4 K/uL (4.8-10.8)
[2017-02-24 18:35] LABS: ALB/GLOB RATIO 1.6 (1.0-2.1); ALCOHOL SERUM 127 mg/dl (0-10); ALKALINE PHOSPHATASE 112 U/L (38-126); ALT/SGPT 87 U/L (21-72); AST/SGOT 45 U/L (17-59); BILIRUBIN,TOTAL 0.9 mg/dl (0.2-1.3); BLOOD UREA NITROGEN 10 mg/dl (9-20); CALCIUM 9.4 mg/dL (8.4-10.2); CARBON DIOXIDE 20 mmol/L (22-30); CHLORIDE 98 mmol/L (98-107); GFR AFRICAN-AMERICAN > 60; GLUCOSE,RANDOM 358 mg/dL (75-110); SODIUM 139 mmol/l (132-148); TOTAL PROTEIN 7.5 G/DL (6.3-8.2)
[2017-02-24] MEDS ORDERED: Alum-Mag Hydrox-Simethicone Susp (30 mL) PO ONE (22:22)
[2017-02-24 22:32] VITALS: O2SAT 98
[2017-02-24] MEDS ORDERED: Magnesium Hydroxide Susp 30 ml UD PO PRN (23:02)
[2017-02-24] MEDS ORDERED: Alum-Mag Hydrox-Simethicone Susp (30 mL) PO PRN (23:02)
[2017-02-24] MEDS ORDERED: DiphenhydrAMINE 50 mg/ml Inj IM PRN (23:02)
[2017-02-25 09:32] LABS: T4 5.56 ug/dl (5.5-11.0)
[2017-02-25 09:45] LABS: THYROID STIMULATING HORMONE 1.99 mIU/ML (0.46-4.68)
[2017-02-25] MEDS: Insulin Lispro (humaLOG) 100 Units/ml Inj SC SCH (17:35)
[2017-02-25] MEDS: Insulin Detemir 100 Units/ml Inj SC SCH (21:09)
[2017-02-25] MEDS ORDERED: Insulin Detemir 100 Units/ml Inj SC SCH (22:00)
[2017-02-26] MEDS: Insulin Lispro (humaLOG) 100 Units/ml Inj SC SCH ×3 (09:26→17:42)
[2017-02-26] MEDS: Insulin Detemir 100 Units/ml Inj SC SCH (21:46)
[2017-02-27] MEDS: Insulin Lispro (humaLOG) 100 Units/ml Inj SC SCH ×3 (09:01→17:00)
[2017-02-27] MEDS: Insulin Detemir 100 Units/ml Inj SC SCH (21:32)
[2017-02-28] MEDS: Insulin Lispro (humaLOG) 100 Units/ml Inj SC SCH ×3 (08:54→17:00)
[2017-02-28] MEDS: Insulin Detemir 100 Units/ml Inj SC SCH (21:44)
[2017-03-01] MEDS: Insulin Lispro (humaLOG) 100 Units/ml Inj SC SCH ×3 (08:30→16:58)
[2017-03-01] MEDS: Insulin Detemir 100 Units/ml Inj SC SCH (21:01)
[2017-03-02] MEDS: Insulin Lispro (humaLOG) 100 Units/ml Inj SC SCH ×2 (08:35→12:02)
[2017-03-02 09:18] VITALS: BP 126/78; PULSE 95; RESP 20; TEMP 98.4
== END 2017-03-02 15:22 | disposition home or self-care (01) | DRG 885 ==
LOC: H.ER 17:45 → H.EROBSV 18:01 → OBSVTOIN 19:42 → H.ERHOLD 19:52 → H.PSYCH 22:47
PROVIDERS: ADMIT Psychiatry & Neurology Psychiatry; ATTEND Psychiatry & Neurology Psychiatry
PROC: GZ51ZZZ Individual Psychotherapy, Behavioral (ICD-10-PCS; 2017-02-24)
PROC: GZHZZZZ Group Psychotherapy (ICD-10-PCS; principal; 2017-02-27)
DX: F33.9 Major depressive disorder, recurrent, unspecified (principal); R45.851 Suicidal ideations; E11.65 Type 2 diabetes mellitus with hyperglycemia; F10.24 Alcohol dependence with alcohol-induced mood disorder; I10 Essential (primary) hypertension; E78.00 Pure hypercholesterolemia, unspecified; F10.229 Alcohol dependence with intoxication, unspecified; F31.9 Bipolar disorder, unspecified; J40 Bronchitis, not specified as acute or chronic; F43.10 Post-traumatic stress disorder, unspecified; H91.92 Unspecified hearing loss, left ear; N40.0 Benign prostatic hyperplasia without lower urinary tract symptoms; H26.9 Unspecified cataract; Z79.4 Long term (current) use of insulin; Z79.899 Other long term (current) drug therapy; Z90.49 Acquired absence of other specified parts of digestive tract; K29.70 Gastritis, unspecified, without bleeding; Y90.6 Blood alcohol level of 120-199 mg/100 ml

== ENCOUNTER 2017-04-21 12:19 | Inpatient (IN) | payer MEDICARE, BC ==
[2017-04-21 12:19] VITALS: BMI 28.1
[2017-04-21] MEDS ORDERED: Sodium Chloride 0.9% 1,000 ML IV STA (12:39)
--- NOTE | 2017-04-21 12:59 | ED PDOC ---
HPI: General Adult Time Seen by Provider: 04/21/17 12:33 Chief Complaint (Nursing): GI Problem Chief Complaint (Provider): Tremors and Shaking s/p alcohol withdrawal History Per: Patient History/Exam Limitations: no limitations Onset/Duration Of Symptoms: Hrs (prior to arrival ) Additional Complaint(s): Juan C eHath is a 61 year old male with a past medical history of chronic alcohol abuse and diabetes presenting to the ED for an evaluation s/p developing shaking and tremors after stopping drinking. The patient states he feels depressed with suicidal ideations present, but reports no specific plan. PMD: Keith Márquez MD Past Medical History Reviewed: Historical Data, Nursing Documentation, Vital Signs Vital Signs: Last Vital Signs Temp 98.9 F 04/21/17 13:18 Pulse 108 H 04/21/17 13:18 Resp 20 04/21/17 13:18 BP 158/106 H 04/21/17 13:18 Pulse Ox 98 04/21/17 13:18 - Medical History PMH: Anxiety, Bipolar Disorder, Bronchitis, Depression, Diabetes, Gastritis, Gall Bladder Disease (s/p cholecystectomy), Hypercholesterolemia Denies: Hepatitis (Pt denies), HIV (Pt denies), HTN (Pt denies), Chronic Kidney Disease, Seizures (Pt denies), Sexually Transmitted Disease (Pt denies) - Surgical History Surgical History: Cholecystectomy - Family History Family History: States: Unknown Family Hx - Social History Alcohol: > 2 Drinks/Day - Immunization History Hx Tetanus Toxoid Vaccination: No Hx Influenza Vaccination: Yes Hx Pneumococcal Vaccination: No - Home Medications Home Medications: Ambulatory Orders Medication Instructions Recorded Insulin Aspart [Novolog] 20 unit SC TID 12/06/16 Atorvastatin [Lipitor] 20 mg PO HS 12/29/16 Insulin Detemir [Levemir] 45 units SC HS 02/24/17 Atorvastatin [Lipitor] 20 mg PO HS tab 03/02/17 Gabapentin [Neurontin] 800 mg PO BID cap 03/02/17 Insulin Detemir [Levemir] 45 units SC HS vial 03/02/17 Sertraline [Zoloft] 100 mg PO DAILY #30 tab 03/02/17 traZODone [Desyrel] 50 mg PO HS #30 tab 03/02/17 - Allergies Allergies/Adverse Reactions: Allergies Allergy/AdvReac Type Severity Reaction Status Date / Time No Known Allergies Allergy Verified 02/24/17 19:57 Review of Systems ROS Statement: Except As Marked, All Systems Reviewed And Found Negative Constitutional: Positive for: Other (tremors and shaking s/p alcohol withdrawal ) Psych: Positive for: Depression, Suicidal ideation Physical Exam - Reviewed Nursing Documentation Reviewed: Yes Vital Signs Reviewed: Yes - Physical Exam Appears: Positive for: Non-toxic, No Acute Distress Head Exam: Positive for: ATRAUMATIC, NORMOCEPHALIC Skin: Positive for: Normal Color, Warm, Dry Eye Exam: Positive for: Normal appearance, EOMI ENT: Positive for: Normal ENT Inspection Neck: Positive for: Normal, Painless ROM Cardiovascular/Chest: Positive for: Regular Rate, Rhythm, Chest Non Tender Respiratory: Positive for: Normal Breath Sounds. Negative for: Rhonchi, Wheezing, Respiratory Distress Gastrointestinal/Abdominal: Positive for: Normal Exam, Soft. Negative for: Tenderness Back: Positive for: Normal Inspection Extremity: Positive for: Normal ROM. Negative for: Deformity Neurologic/Psych: Positive for: Alert, Oriented (x3), Other (tremors to upper extremities ) - Laboratory Results Result Diagrams: 04/21/17 13:00 04/21/17 13:00 Medical Decision Making Medical Decision Making: Time: 12:33 Impression: Alcohol Withdrawal Plan: * ED EKG * Alcohol Serum * CMP * Drug Screen, urine * CBC (with differential) * Ativan 1 mg PO * NS 0.9% 1,000 ml IV 150 mls/hr * 1:1 Obs for Suicide Precaution Scribe Attestation: Documented by Anabel Albarado, acting as a scribe for Bassem Kelsey MD. Provider Scribe Attestation: All medical record entries made by the Scribe were at my direction and personally dictated by me. I have reviewed the chart and agree that the record accurately reflects my personal performance of the history, physical exam, medical decision making, and the department course for this patient. I have also personally directed, reviewed, and agree with the discharge instructions and disposition. Disposition - Clinical Impression Clinical Impression: Acute depression, DM2 (diabetes mellitus, type 2) - Patient ED Disposition Is Patient to be Admitted: Transfer of Care - Disposition Referrals: Keith Márquez MD [Primary Care Provider] - Disposition: Transfer of Care Disposition Time: 15:03 Condition: FAIR Forms: REach (Swedish) Patient Signed Over To: Omar Finch
[2017-04-21 13:15] LABS: BASO % 0.4 % (0.0-2.0); EOS % 0.4 % (0.0-4.0); HEMATOCRIT 43.5 % (35.0-51.0); LYMPH # 1.1 K/uL (1.0-4.3); LYMPH % 14.5 % (20.0-40.0); MEAN CELL VOLUME 85.8 fl (80.0-94.0); MEAN CORPUSCULAR HEMOGLOBIN 29.7 pg (27.0-31.0); MEAN CORPUSCULAR HGB CONC 34.6 g/dL (33.0-37.0); MEAN PLATELET VOLUME 8.7 fl (7.2-11.7); MONO # 0.4 K/uL (0.0-0.8); MONO % 4.9 % (0.0-10.0); NEUT # 6.2 K/uL (1.8-7.0); NEUT % 79.8 % (50.0-75.0); NRBC % 0.1 % (0.0-0.0); RED CELL DISTRIBUTION WIDTH 13.7 % (11.5-14.5); WHITE BLOOD COUNT 7.8 K/uL (4.8-10.8)
[2017-04-21 13:25] LABS: ALB/GLOB RATIO 1.6 (1.0-2.1); ALCOHOL SERUM < 10 mg/dl (0-10); ALKALINE PHOSPHATASE 163 U/L (38-126); ALT/SGPT 138 U/L (21-72); AST/SGOT 54 U/L (17-59); BILIRUBIN,TOTAL 0.8 mg/dl (0.2-1.3); BLOOD UREA NITROGEN 13 mg/dl (9-20); CALCIUM 9.5 mg/dL (8.4-10.2); CARBON DIOXIDE 20 mmol/L (22-30); CHLORIDE 98 mmol/L (98-107); GFR AFRICAN-AMERICAN > 60; GLUCOSE,RANDOM 386 mg/dL (75-110); POTASSIUM 4.4 MMOL/L (3.6-5.0); SODIUM 138 mmol/l (132-148); TOTAL PROTEIN 7.9 G/DL (6.3-8.2)
[2017-04-21] MEDS ORDERED: Insulin Regular 100 units/ml SC STA (13:43)
[2017-04-21] MEDS ORDERED: Insulin Regular 100 units/ml ONE (14:03)
--- NOTE | 2017-04-21 15:48 | ED PDOC ---
- Laboratory Results Result Diagrams: 04/21/17 13:00 04/21/17 13:00 Interpretation Of Abn Labs: 386 glucose - ECG ECG: Positive for: Interpreted By Me, Viewed By Me ECG Rhythm: Positive for: Normal QRS, Normal ST Segment, Sinus Rhythm O2 Sat by Pulse Oximetry: 98 Pulse Ox Interpretation: Normal - Progress ED Course And Treament: 1529: Stable. Took over care from Dr. Kelsey. Fu on repeat blood sugar and crisis. Insulin already given. 1400: Blood sugar 230. Improved from old. Stable medically for psych admit. Will give 0.5mg ativan as pt. is depressed and feels a little bit of shakes( improved from before). 1525: BP elevated and still with some shakes. Will give clonidine and admit pt. Spoke with Dr. Haskins, will admit obs. Disposition - Clinical Impression Clinical Impression: Acute depression, HTN (hypertension), Hyperglycemia, Alcohol withdrawal - POA Present On Arrival: Poor Glycemic Control - Disposition Disposition: Hospitalized as Observation Patient Disposition Time: 17:28 Condition: FAIR
[2017-04-21] MEDS: Insulin Detemir 100 Units/ml Inj SC SCH (22:45)
[2017-04-21] MEDS: Insulin Lispro (humaLOG) 100 Units/ml Inj SC SCH (22:52)
[2017-04-21] MEDS: Sodium Chloride 0.9% 1,000 ML IV SCH (23:07)
--- NOTE | 2017-04-22 07:25 | RAD ---
HISTORY: cough COMPARISON: No prior. FINDINGS: LUNGS: No active pulmonary disease. PLEURA: No significant pleural effusion identified, no pneumothorax apparent. CARDIOVASCULAR: Normal. OSSEOUS STRUCTURES: No significant abnormalities. VISUALIZED UPPER ABDOMEN: Normal. OTHER FINDINGS: None. IMPRESSION: No active disease.
[2017-04-22 08:08] LABS: HEMATOCRIT 38.8 % (35.0-51.0); MEAN CELL VOLUME 86.4 fl (80.0-94.0); MEAN CORPUSCULAR HEMOGLOBIN 29.5 pg (27.0-31.0); MEAN CORPUSCULAR HGB CONC 34.1 g/dL (33.0-37.0); RED CELL DISTRIBUTION WIDTH 14.3 % (11.5-14.5); WHITE BLOOD COUNT 6.6 K/uL (4.8-10.8)
[2017-04-22 08:22] LABS: ALB/GLOB RATIO 1.4 (1.0-2.1); ALKALINE PHOSPHATASE 96 U/L (38-126); ALT/SGPT 103 U/L (21-72); AST/SGOT 39 U/L (17-59); BILIRUBIN,TOTAL 0.7 mg/dl (0.2-1.3); BLOOD UREA NITROGEN 16 mg/dl (9-20); CALCIUM 8.6 mg/dL (8.4-10.2); CARBON DIOXIDE 27 mmol/L (22-30); CHLORIDE 104 mmol/L (98-107); GFR AFRICAN-AMERICAN > 60; GLUCOSE,RANDOM 155 mg/dL (75-110); POTASSIUM 3.8 MMOL/L (3.6-5.0); SODIUM 139 mmol/l (132-148); TOTAL PROTEIN 6.4 G/DL (6.3-8.2)
[2017-04-22 08:41] LABS: THYROID STIMULATING HORMONE 2.19 mIU/ML (0.46-4.68)
[2017-04-22] MEDS: Insulin Lispro (humaLOG) 100 Units/ml Inj SC SCH ×4 (08:51→22:39)
--- NOTE | 2017-04-22 13:17 | CP.PCM.CON ---
History of Present Illness - History of Present Illness History of Present Illness: This is a 61 yr old male with h/o depression and alcohol dependence and consult requested for evaluation as pt was admitted medically for overdose on pills in a suicidal attempt and alcohol withdrawl.pt has been very depressed and it was a suicidal atempt and pt has been selfmedicating with Alcohol. Past Patient History - Infectious Disease Hx of Infectious Diseases: None - Tetanus Immunizations Tetanus Immunization: Unknown - Past Medical History & Family History Past Medical History?: Yes - Past Social History Smoking Status: Current Some Days Smoker - CARDIAC Hx Cardiac Disorders: No Hx Hypertension: No (Pt denies) - PULMONARY Hx Respiratory Disorders: Yes Hx Bronchitis: Yes - NEUROLOGICAL Hx Neurological Disorder: No Hx Seizures: No (Pt denies) - HEENT Hx HEENT Problems: Yes Hx Deafness: Yes (left ear very [place]) - RENAL Hx Chronic Kidney Disease: No - ENDOCRINE/METABOLIC Hx Endocrine Disorders: Yes Hx Diabetes Mellitus Type 1: Yes - HEMATOLOGICAL/ONCOLOGICAL Hx Blood Disorders: No Hx AIDS: No Hx Human Immunodeficiency Virus (HIV): No (Pt denies) - INTEGUMENTARY Hx Dermatological Problems: No - MUSCULOSKELETAL/RHEUMATOLOGICAL Hx Musculoskeletal Disorders: No Hx Falls: No - GASTROINTESTINAL Hx Gastrointestinal Disorders: Yes Hx Gall Bladder Disease: Yes (s/p cholecystectomy) Hx Gastritis: Yes - GENITOURINARY/GYNECOLOGICAL Hx Genitourinary Disorders: Yes Hx Prostate Problems: Yes Hx Sexually Transmitted Disorders: No (Pt denies) - PSYCHIATRIC Hx Psychophysiologic Disorder: Yes Hx Anxiety: Yes Hx Bipolar Disorder: Yes Hx Depression: Yes Hx Substance Use: No - SURGICAL HISTORY Hx Surgeries: Yes Hx Cholecystectomy: Yes - ANESTHESIA Hx Anesthesia: Yes Hx Anesthesia Reactions: No Hx Malignant Hyperthermia: No Meds Allergies/Adverse Reactions: Allergies Allergy/AdvReac Type Severity Reaction Status Date / Time No Known Allergies Allergy Verified 02/24/17 19:57 - Medications Medications: Current Medications Atorvastatin Calcium (Lipitor) 20 mg PO HS [facility] Last Admin: 04/21/17 22:44 Dose: 20 mg Clonidine HCl (Catapres) 0.1 mg PO BID [facility] Last Admin: 04/22/17 08:49 Dose: 0.1 mg Folic Acid (Folic Acid) 1 mg PO DAILY [facility] Last Admin: 04/22/17 08:50 Dose: 1 mg Gabapentin (Neurontin) 800 mg PO BID [facility] Last Admin: 04/22/17 08:50 Dose: 800 mg Heparin Sodium (Porcine) (Heparin) 5,000 units SC Q8@0600,1400,2200 [facility] PRN Reason: Protocol Last Admin: 04/22/17 06:32 Dose: 5,000 units Sodium Chloride (Sodium Chloride 0.9%) 1,000 mls @ 100 mls/hr IV .Q10H [facility] Stop: 04/22/17 20:49 Last Admin: 04/21/17 23:07 Dose: 100 mls/hr Insulin Detemir (Levemir) 45 units SC HS [facility] Last Admin: 04/21/17 22:45 Dose: 45 unit Insulin Human Lispro (Humalog) 0 units SC ACCU-CHECK [facility] PRN Reason: Protocol Last Admin: 04/22/17 12:31 Dose: 2 units Lorazepam (Ativan) 2 mg IVP Q4 PRN PRN Reason: Agitation Last Admin: 04/21/17 23:04 Dose: 2 mg Sertraline HCl (Zoloft) 100 mg PO DAILY [facility] Last Admin: 04/22/17 08:50 Dose: 100 mg Thiamine HCl (Vitamin B1 Tab) 100 mg PO DAILY [facility] Last Admin: 04/22/17 08:50 Dose: 100 mg Trazodone HCl (Desyrel) 50 mg PO [facility] Last Admin: 04/21/17 22:44 Dose: 50 mg Physical Exam - Psychiatric Exam Psychiatric exam: Depressed, Flat Affect, Suicidal Ideation Additional comments: pt has remained increasingly depressed in mood and still suicudal and risk to self.no psychosis.alert orientedx3 with intact memory but poor concentration, poor insight but pt is willing for voluntary admission. Results - Vital Signs Recent Vital Signs: Last Vital Signs Temp 98.6 F 04/22/17 12:00 Pulse 85 04/22/17 12:00 Resp 20 04/22/17 12:00 BP 127/78 04/22/17 12:00 Pulse Ox 95 04/22/17 12:00 - Labs Result Diagrams: 04/22/17 06:30 04/22/17 06:30 Labs: Laboratory Results - last 24 hr 04/21/17 04/21/17 04/21/17 13:00 13:00 13:40 WBC 7.8 RBC 5.07 Hgb 15.1 Hct 43.5 MCV 85.8 D MCH 29.7 MCHC 34.6 RDW 13.7 Plt Count 158 MPV 8.7 Neut % (Auto) 79.8 H Lymph % (Auto) 14.5 L Clinton % (Auto) 4.9 Eos % (Auto) 0.4 Baso % (Auto) 0.4 Neut # 6.2 Lymph # 1.1 Clinton # 0.4 Eos # 0.0 Baso # 0.0 Sodium 138 Potassium 4.4 Chloride 98 Carbon Dioxide 20 L Anion Gap 24 H BUN 13 Creatinine 0.9 Est GFR ( Amer) > 60 Est GFR (Non-Af Amer) > 60 POC Glucose (mg/dL) Random Glucose 386 H Calcium 9.5 Total Bilirubin 0.8 AST 54 ALT 138 H D Alkaline Phosphatase 163 H D Total Protein 7.9 Albumin 4.8 Globulin 3.1 Albumin/Globulin Ratio 1.6 Vitamin B12 TSH 3rd Generation Urine Opiates Screen Negative Urine Methadone Screen Negative Ur Barbiturates Screen Negative Ur Phencyclidine Scrn Negative Ur Amphetamines Screen Negative U Benzodiazepines Scrn Negative U Oth Cocaine Metabols Negative U Cannabinoids Screen Negative Alcohol, Quantitative < 10 04/21/17 04/21/17 04/21/17 15:41 18:30 22:17 WBC RBC Hgb Hct MCV MCH MCHC RDW Plt Count MPV Neut % (Auto) Lymph % (Auto) Clinton % (Auto) Eos % (Auto) Baso % (Auto) Neut # Lymph # Clinton # Eos # Baso # Sodium Potassium Chloride Carbon Dioxide Anion Gap BUN Creatinine Est GFR ( Amer) Est GFR (Non-Af Amer) POC Glucose (mg/dL) 230 H 184 H 231 H Random Glucose Calcium Total Bilirubin AST ALT Alkaline Phosphatase Total Protein Albumin Globulin Albumin/Globulin Ratio Vitamin B12 TSH 3rd Generation Urine Opiates Screen Urine Methadone Screen Ur Barbiturates Screen Ur Phencyclidine Scrn Ur Amphetamines Screen U Benzodiazepines Scrn U Oth Cocaine Metabols U Cannabinoids Screen Alcohol, Quantitative 04/22/17 04/22/17 04/22/17 06:30 06:30 06:41 WBC 6.6 RBC 4.49 Hgb 13.2 Hct 38.8 MCV 86.4 MCH 29.5 MCHC 34.1 RDW 14.3 Plt Count 151 MPV Neut % (Auto) Lymph % (Auto) Clinton % (Auto) Eos % (Auto) Baso % (Auto) Neut # Lymph # Clinton # Eos # Baso # Sodium 139 Potassium 3.8 Chloride 104 Carbon Dioxide 27 Anion Gap 12 BUN 16 Creatinine 0.7 L Est GFR ( Amer) > 60 Est GFR (Non-Af Amer) > 60 POC Glucose (mg/dL) 164 H Random Glucose 155 H Calcium 8.6 Total Bilirubin 0.7 AST 39 ALT 103 H D Alkaline Phosphatase 96 Total Protein 6.4 Albumin 3.7 Globulin 2.7 Albumin/Globulin Ratio 1.4 Vitamin B12 945 H TSH 3rd Generation 2.19 Urine Opiates Screen Urine Methadone Screen Ur Barbiturates Screen Ur Phencyclidine Scrn Ur Amphetamines Screen U Benzodiazepines Scrn U Oth Cocaine Metabols U Cannabinoids Screen Alcohol, Quantitative 04/22/17 11:35 WBC RBC Hgb Hct MCV MCH MCHC RDW Plt Count MPV Neut % (Auto) Lymph % (Auto) Clinton % (Auto) Eos % (Auto) Baso % (Auto) Neut # Lymph # Clinton # Eos # Baso # Sodium Potassium Chloride Carbon Dioxide Anion Gap BUN Creatinine Est GFR ( Amer) Est GFR (Non-Af Amer) POC Glucose (mg/dL) 191 H Random Glucose Calcium Total Bilirubin AST ALT Alkaline Phosphatase Total Protein Albumin Globulin Albumin/Globulin Ratio Vitamin B12 TSH 3rd Generation Urine Opiates Screen Urine Methadone Screen Ur Barbiturates Screen Ur Phencyclidine Scrn Ur Amphetamines Screen U Benzodiazepines Scrn U Oth Cocaine Metabols U Cannabinoids Screen Alcohol, Quantitative Assessment & Plan - Assessment and Plan (Free Text) Assessment: A/P : Major depression plan : kaiden is agreeable to voluntary inpt psych admission and will be admitted to 3Np or 3Ns depending on bed availability when pt is medicallly cleared continue 1:1 obsevation and continue zoloft as regimen .
--- NOTE | 2017-04-22 14:20 | CARD ---
APPROVED REPORT EKG Measurement Heart [id number] <Conclusion> Sinus tachycardia Borderline ECG
[2017-04-22] MEDS: Sodium Chloride 0.9% 1,000 ML IV SCH (17:44)
[2017-04-22] MEDS: Insulin Detemir 100 Units/ml Inj SC SCH (22:38)
--- NOTE | 2017-04-22 23:52 | CP.PCM.HP ---
Past Patient History - Infectious Disease Hx of Infectious Diseases: None - Tetanus Immunizations Tetanus Immunization: Unknown - Past Medical History & Family History Past Medical History?: Yes - Past Social History Smoking Status: Current Some Days Smoker - CARDIAC Hx Cardiac Disorders: No Hx Hypertension: No (Pt denies) - PULMONARY Hx Respiratory Disorders: Yes Hx Bronchitis: Yes - NEUROLOGICAL Hx Neurological Disorder: No Hx Seizures: No (Pt denies) - HEENT Hx HEENT Problems: Yes Hx Deafness: Yes (left ear very [place]) - RENAL Hx Chronic Kidney Disease: No - ENDOCRINE/METABOLIC Hx Endocrine Disorders: Yes Hx Diabetes Mellitus Type 1: Yes - HEMATOLOGICAL/ONCOLOGICAL Hx Blood Disorders: No Hx AIDS: No Hx Human Immunodeficiency Virus (HIV): No (Pt denies) - INTEGUMENTARY Hx Dermatological Problems: No - MUSCULOSKELETAL/RHEUMATOLOGICAL Hx Musculoskeletal Disorders: No Hx Falls: No - GASTROINTESTINAL Hx Gastrointestinal Disorders: Yes Hx Gall Bladder Disease: Yes (s/p cholecystectomy) Hx Gastritis: Yes - GENITOURINARY/GYNECOLOGICAL Hx Genitourinary Disorders: Yes Hx Prostate Problems: Yes Hx Sexually Transmitted Disorders: No (Pt denies) - PSYCHIATRIC Hx Psychophysiologic Disorder: Yes Hx Anxiety: Yes Hx Bipolar Disorder: Yes Hx Depression: Yes Hx Substance Use: No - SURGICAL HISTORY Hx Surgeries: Yes Hx Cholecystectomy: Yes - ANESTHESIA Hx Anesthesia: Yes Hx Anesthesia Reactions: No Hx Malignant Hyperthermia: No Meds Allergies/Adverse Reactions: Allergies Allergy/AdvReac Type Severity Reaction Status Date / Time No Known Allergies Allergy Verified 02/24/17 19:57 Results - Vital Signs Recent Vital Signs: Last Vital Signs Temp 97.9 F 04/22/17 19:38 Pulse 73 04/22/17 21:00 Resp 16 04/22/17 19:38 BP 125/78 04/22/17 19:38 Pulse Ox 96 04/22/17 19:38 - Labs Result Diagrams: 04/22/17 06:30 04/22/17 06:30 Labs: Laboratory Results - last 24 hr 04/21/17 04/21/17 04/22/17 15:41 18:30 06:30 WBC 6.6 RBC 4.49 Hgb 13.2 Hct 38.8 MCV 86.4 MCH 29.5 MCHC 34.1 RDW 14.3 Plt Count 151 Sodium Potassium Chloride Carbon Dioxide Anion Gap BUN Creatinine Est GFR ( Amer) Est GFR (Non-Af Amer) POC Glucose (mg/dL) 230 H 184 H Random Glucose Calcium Total Bilirubin AST ALT Alkaline Phosphatase Total Protein Albumin Globulin Albumin/Globulin Ratio Vitamin B12 TSH 3rd Generation 04/22/17 04/22/17 04/22/17 06:30 06:41 11:35 WBC RBC Hgb Hct MCV MCH MCHC RDW Plt Count Sodium 139 Potassium 3.8 Chloride 104 Carbon Dioxide 27 Anion Gap 12 BUN 16 Creatinine 0.7 L Est GFR ( Amer) > 60 Est GFR (Non-Af Amer) > 60 POC Glucose (mg/dL) 164 H 191 H Random Glucose 155 H Calcium 8.6 Total Bilirubin 0.7 AST 39 ALT 103 H D Alkaline Phosphatase 96 Total Protein 6.4 Albumin 3.7 Globulin 2.7 Albumin/Globulin Ratio 1.4 Vitamin B12 945 H TSH 3rd Generation 2.19 04/22/17 16:51 WBC RBC Hgb Hct MCV MCH MCHC RDW Plt Count Sodium Potassium Chloride Carbon Dioxide Anion Gap BUN Creatinine Est GFR ( Amer) Est GFR (Non-Af Amer) POC Glucose (mg/dL) 217 H Random Glucose Calcium Total Bilirubin AST ALT Alkaline Phosphatase Total Protein Albumin Globulin Albumin/Globulin Ratio Vitamin B12 TSH 3rd Generation
[2017-04-23] MEDS: Insulin Lispro (humaLOG) 100 Units/ml Inj SC SCH ×4 (08:58→22:04)
--- NOTE | 2017-04-23 12:43 | CP.PCM.CON ---
History of Present Illness - History of Present Illness History of Present Illness: Psychiatry follow-up note Patient initially evaluated on 04/22/17. HPI: 61 yr old male w/ h/o alcohol use disorder, substance induced mood disorder , as per chart presents s/p suicide attempt by OD on pills, although patient currently denies any recent suicide attempt to staff writer. Patient reports that he came to the hospital for alcohol withdrawal. He is not agreeable to inpatient psychiatric admission at this time, despite discussing admission options w/ both MD and worker's compensation claims examiner. Patient reports that he feels depressed due to his chronic alcohol abuse, but denies current SI/HI/psychosis/delusions/ paranoia/john/anxiety. MSE: A + O x 3, patient calm, cooperative, no acute distress, speech normal, mood "depressed", affect- constricted, no hallucinations, thought process- linear/coherent, thought content- no delusions, NO SI/HI, chronic poor I/J re: alcohol abuse. Impression: 61 yo male w/ Alcohol Use Disorder, Substance Induced Mood Disorder , unclear if patient attempted suicide prior to admission; patient not agreeable to inpatient psychiatric admission at this time. Patient has capacity to make medical decisions at this time. -Screen for involuntary admission; if patient does not meet criteria for involuntary commitment, can discharge patient w/ outpatient follow-up as he is not agreeable to voluntary admission. -Psychoeducation re: alcohol abuse -WA protocol for ETOH w/drawal -Continue 1:1 for safety Past Patient History - Infectious Disease Hx of Infectious Diseases: None - Tetanus Immunizations Tetanus Immunization: Unknown - Past Medical History & Family History Past Medical History?: Yes - Past Social History Smoking Status: Current Some Days Smoker - CARDIAC Hx Cardiac Disorders: No Hx Hypertension: No (Pt denies) - PULMONARY Hx Respiratory Disorders: Yes Hx Bronchitis: Yes - NEUROLOGICAL Hx Neurological Disorder: No Hx Seizures: No (Pt denies) - HEENT Hx HEENT Problems: Yes Hx Deafness: Yes (left ear very [place] - RENAL Hx Chronic Kidney Disease: No - ENDOCRINE/METABOLIC Hx Endocrine Disorders: Yes Hx Diabetes Mellitus Type 1: Yes - HEMATOLOGICAL/ONCOLOGICAL Hx Blood Disorders: No Hx AIDS: No Hx Human Immunodeficiency Virus (HIV): No (Pt denies) - INTEGUMENTARY Hx Dermatological Problems: No - MUSCULOSKELETAL/RHEUMATOLOGICAL Hx Musculoskeletal Disorders: No Hx Falls: No - GASTROINTESTINAL Hx Gastrointestinal Disorders: Yes Hx Gall Bladder Disease: Yes (s/p cholecystectomy) Hx Gastritis: Yes - GENITOURINARY/GYNECOLOGICAL Hx Genitourinary Disorders: Yes Hx Prostate Problems: Yes Hx Sexually Transmitted Disorders: No (Pt denies) - PSYCHIATRIC Hx Psychophysiologic Disorder: Yes Hx Anxiety: Yes Hx Bipolar Disorder: Yes Hx Depression: Yes Hx Substance Use: No - SURGICAL HISTORY Hx Surgeries: Yes Hx Cholecystectomy: Yes - ANESTHESIA Hx Anesthesia: Yes Hx Anesthesia Reactions: No Hx Malignant Hyperthermia: No Meds Allergies/Adverse Reactions: Allergies Allergy/AdvReac Type Severity Reaction Status Date / Time No Known Allergies Allergy Verified 02/24/17 19:57 - Medications Medications: Current Medications Atorvastatin Calcium (Lipitor) 20 mg PO HS [facility] Last Admin: 04/22/17 22:37 Dose: 20 mg Clonidine HCl (Catapres) 0.1 mg PO BID [facility] Last Admin: 04/23/17 08:58 Dose: 0.1 mg Folic Acid (Folic Acid) 1 mg PO DAILY [facility] Last Admin: 04/23/17 09:00 Dose: 1 mg Gabapentin (Neurontin) 800 mg PO BID [facility] Last Admin: 04/23/17 08:57 Dose: 800 mg Heparin Sodium (Porcine) (Heparin) 5,000 units SC Q8@0600,1400,2200 [facility] PRN Reason: Protocol Last Admin: 04/23/17 07:11 Dose: 5,000 units Insulin Detemir (Levemir) 45 units SC HS [facility] Last Admin: 04/22/17 22:38 Dose: 45 unit Insulin Human Lispro (Humalog) 0 units SC ACCU-CHECK [facility] PRN Reason: Protocol Last Admin: 04/23/17 08:58 Dose: 2 units Lorazepam (Ativan) 2 mg IVP Q4 PRN PRN Reason: Agitation Last Admin: 04/22/17 22:45 Dose: 2 mg Sertraline HCl (Zoloft) 100 mg PO DAILY [facility] Last Admin: 04/23/17 08:58 Dose: 100 mg Thiamine HCl (Vitamin B1 Tab) 100 mg PO DAILY [facility] Last Admin: 04/23/17 08:58 Dose: 100 mg Trazodone HCl (Desyrel) 50 mg PO HS [facility] Last Admin: 04/22/17 22:37 Dose: 50 mg Results - Vital Signs Recent Vital Signs: Last Vital Signs Temp 97.6 F 04/23/17 09:00 Pulse 71 04/23/17 09:00 Resp 18 04/23/17 09:00 BP 113/74 04/23/17 09:00 Pulse Ox 98 04/23/17 09:00 - Labs Result Diagrams: 04/22/17 06:30 04/22/17 06:30 Labs: Laboratory Results - last 24 hr 04/22/17 04/22/17 04/23/17 16:51 22:10 05:25 POC Glucose (mg/dL) 217 H 190 H 159 H
--- NOTE | 2017-04-23 20:46 | CP.PCM.PN ---
Subjective - Date & Time of Evaluation Date of Evaluation: 04/23/17 Time of Evaluation: 17:15 Objective - Vital Signs/Intake and Output Vital Signs (last 24 hours): Temp Pulse Resp BP Pulse Ox 99.2 F 85 16 106/70 95 04/23/17 20:02 04/23/17 20:02 04/23/17 20:02 04/23/17 20:02 04/23/17 20:02 - Medications Medications: Current Medications Atorvastatin Calcium (Lipitor) 20 mg PO HS [facility] Last Admin: 04/22/17 22:37 Dose: 20 mg Clonidine HCl (Catapres) 0.1 mg PO BID [facility] Last Admin: 04/23/17 17:49 Dose: 0.1 mg Folic Acid (Folic Acid) 1 mg PO DAILY [facility] Last Admin: 04/23/17 09:00 Dose: 1 mg Gabapentin (Neurontin) 800 mg PO BID [facility] Last Admin: 04/23/17 17:51 Dose: 800 mg Heparin Sodium (Porcine) (Heparin) 5,000 units SC Q8@0600,1400,2200 [facility] PRN Reason: Protocol Last Admin: 04/23/17 13:23 Dose: 5,000 units Insulin Detemir (Levemir) 45 units SC [facility] Last Admin: 04/22/17 22:38 Dose: 45 unit Insulin Human Lispro (Humalog) 0 units SC ACCU-CHECK [facility] PRN Reason: Protocol Last Admin: 04/23/17 17:50 Dose: 4 units Lorazepam (Ativan) 2 mg IVP Q4 PRN PRN Reason: Agitation Last Admin: 04/23/17 20:27 Dose: 2 mg Sertraline HCl (Zoloft) 100 mg PO DAILY [facility] Last Admin: 04/23/17 08:58 Dose: 100 mg Thiamine HCl (Vitamin B1 Tab) 100 mg PO DAILY [facility] Last Admin: 04/23/17 08:58 Dose: 100 mg Trazodone HCl (Desyrel) 50 mg PO HS [facility] Last Admin: 04/22/17 22:37 Dose: 50 mg - Labs Labs: 04/22/17 06:30 04/22/17 06:30
[2017-04-23] MEDS: Insulin Detemir 100 Units/ml Inj SC SCH (22:03)
[2017-04-24] MEDS: Insulin Lispro (humaLOG) 100 Units/ml Inj SC SCH ×2 (09:45→14:03)
[2017-04-24 13:20] VITALS: BP 100/66; PULSE 75; RESP 20; TEMP 97.7; O2SAT 94
--- NOTE | 2017-04-24 13:42 | CP.PCM.PCO ---
Assessment & Plan - Assessment and Plan (Free Text) Assessment: pt. doing well this morning Denies fever, chills, sob, cp denies feeling hopeless, helpless or suicidal pt. was denies by screenes for involuntary commitment (SW spoke with [facility] director Alma Rosa) pt. offerred voluntary admission to [facility] but wishes to be d/c home notified , patient cleared for discharge to Home today by , 1:1 discontinued Above discussed with - pt. cleared for d/c pt. has a follow up appointment with his pmd Dr.Maual Márquez and his psychiatrist on Friday 04/27
--- NOTE | 2017-04-24 23:58 | CP.PCM.DIS ---
Provider - Provider Date of Admission: 04/22/17 12:30 Attending physician: Wilma Haskins MD Primary care physician: Keith Márquez MD Hospital Course - Lab Results Lab Results: Most Recent Lab Values WBC 6.6 K/uL (4.8-10.8) 04/22/17 06:30 RBC 4.49 Mil/uL (4.40-5.90) 04/22/17 06:30 Hgb 13.2 g/dL (12.0-18.0) 04/22/17 06:30 Hct 38.8 % (35.0-51.0) 04/22/17 06:30 MCV 86.4 fl (80.0-94.0) 04/22/17 06:30 MCH 29.5 pg (27.0-31.0) 04/22/17 06:30 MCHC 34.1 g/dL (33.0-37.0) 04/22/17 06:30 RDW 14.3 % (11.5-14.5) 04/22/17 06:30 Plt Count 151 K/uL (130-400) 04/22/17 06:30 MPV 8.7 fl (7.2-11.7) 04/21/17 13:00 Neut % (Auto) 79.8 % (50.0-75.0) H 04/21/17 13:00 Lymph % (Auto) 14.5 % (20.0-40.0) L 04/21/17 13:00 Colbert % (Auto) 4.9 % (0.0-10.0) 04/21/17 13:00 Eos % (Auto) 0.4 % (0.0-4.0) 04/21/17 13:00 Baso % (Auto) 0.4 % (0.0-2.0) 04/21/17 13:00 Neut # 6.2 K/uL (1.8-7.0) 04/21/17 13:00 Lymph # 1.1 K/uL (1.0-4.3) 04/21/17 13:00 Colbert # 0.4 K/uL (0.0-0.8) 04/21/17 13:00 Eos # 0.0 K/uL (0.0-0.7) 04/21/17 13:00 Baso # 0.0 K/uL (0.0-0.2) 04/21/17 13:00 Sodium 139 mmol/l (132-148) 04/22/17 06:30 Potassium 3.8 MMOL/L (3.6-5.0) 04/22/17 06:30 Chloride 104 mmol/L (98-107) 04/22/17 06:30 Carbon Dioxide 27 mmol/L (22-30) 04/22/17 06:30 Anion Gap 12 (10-20) 04/22/17 06:30 BUN 16 mg/dl (9-20) 04/22/17 06:30 Creatinine 0.7 mg/dl (0.8-1.5) L 04/22/17 06:30 Est GFR ( Amer) > 60 04/22/17 06:30 Est GFR (Non-Af Amer) > 60 04/22/17 06:30 POC Glucose (mg/dL) 268 mg/dL (65-110) H 04/24/17 11: Random Glucose 155 mg/dL (75-110) H 04/22/17 06:30 Calcium 8.6 mg/dL (8.4-10.2) 04/22/17 06:30 Total Bilirubin 0.7 mg/dl (0.2-1.3) 04/22/17 06:30 AST 39 U/L (17-59) 04/22/17 06:30 ALT 103 U/L (21-72) H D 04/22/17 06:30 Alkaline Phosphatase 96 U/L (38-126) 04/22/17 06:30 Total Protein 6.4 G/DL (6.3-8.2) 04/22/17 06:30 Albumin 3.7 g/dL (3.5-5.0) 04/22/17 06:30 Globulin 2.7 gm/dL (2.2-3.9) 04/22/17 06:30 Albumin/Globulin Ratio 1.4 (1.0-2.1) 04/22/17 06:30 Vitamin B12 945 pg/mL (239-931) H 04/22/17 06:30 TSH 3rd Generation 2.19 mIU/ML (0.46-4.68) 04/22/17 06:30 Urine Opiates Screen Negative (NEGATIVE) 04/21/17 13:40 Urine Methadone Screen Negative (NEGATIVE) 04/21/17 13:40 Ur Barbiturates Screen Negative (NEGATIVE) 04/21/17 13:40 Ur Phencyclidine Scrn Negative (NEGATIVE) 04/21/17 13:40 Ur Amphetamines Screen Negative (NEGATIVE) 04/21/17 13:40 U Benzodiazepines Scrn Negative (NEGATIVE) 04/21/17 13:40 U Oth Cocaine Metabols Negative (NEGATIVE) 04/21/17 13:40 U Cannabinoids Screen Negative (NEGATIVE) 04/21/17 13:40 Alcohol, Quantitative < 10 mg/dl (0-10) 04/21/17 13:00 Discharge Exam - Head Exam Head Exam: ATRAUMATIC, NORMOCEPHALIC Discharge Plan - Discharge Medications Prescriptions: Folic Acid 1 mg PO DAILY #30 tab Thiamine [Vitamin B1 Tab] 100 mg PO DAILY #30 tab - Follow Up Plan Condition: FAIR Disposition: HOME/ ROUTINE Instructions: Alcohol Withdrawal (DC), Diabetic Hyperglycemia (DC) Referrals: Keith Márquez MD [Primary Care Provider] -
== END 2017-04-24 15:30 | disposition home or self-care (01) | DRG 895 ==
LOC: H.ER 12:19 → SUPCPDRO 12:19 → INTOOBSV 15:59 → H.ERHOLD 15:59 → H.TEL 19:16 → OBSVTOIN 04-22 12:30
PROVIDERS: ADMIT Internal Medicine; ATTEND Internal Medicine
PROC: HZ56ZZZ Individual Psychotherapy for Substance Abuse Treatment, Psychoeducation (ICD-10-PCS; principal; 2017-04-22)
DX: F10.231 Alcohol dependence with withdrawal delirium (principal); R45.851 Suicidal ideations; E10.65 Type 1 diabetes mellitus with hyperglycemia; F31.9 Bipolar disorder, unspecified; Y90.0 Blood alcohol level of less than 20 mg/100 ml; I10 Essential (primary) hypertension; E78.00 Pure hypercholesterolemia, unspecified; K29.70 Gastritis, unspecified, without bleeding; F41.9 Anxiety disorder, unspecified; F17.200 Nicotine dependence, unspecified, uncomplicated

== ENCOUNTER 2017-05-02 19:04 | Emergency (ER) | payer MEDICARE, BC ==
[2017-05-02 19:04] VITALS: BMI 28.1
[2017-05-02] MEDS ORDERED: Sodium Chloride 0.9% 1,000 ML IV STA (19:50)
--- NOTE | 2017-05-02 20:19 | ED PDOC ---
HPI: General Adult Time Seen by Provider: 05/02/17 19:47 Chief Complaint (Nursing): Dizziness/Lightheaded Chief Complaint (Provider): Alcohol withdrawal History Per: Patient History/Exam Limitations: no limitations Onset/Duration Of Symptoms: Days (x 1 week) Current Symptoms Are (Timing): Still Present Additional Complaint(s): Juan C Heath is a 61-year-old male who presents to the ED complaining that he is withdrawing from alcohol. States his last drink was last week. He reports he has not taken his diabetes medications since being discharged last week. Patient states he feels jittery. PMD: Dr. Keith Márquez MD Past Medical History Reviewed: Historical Data, Nursing Documentation, Vital Signs Vital Signs: Last Vital Signs Temp 98.5 F 05/02/17 22:54 Pulse 84 05/02/17 23:08 Resp 16 05/02/17 22:54 BP 152/101 H 05/02/17 23:08 Pulse Ox 99 05/02/17 23:04 - Medical History PMH: Anxiety, Bipolar Disorder, Bronchitis, Depression, Diabetes, Gastritis, Gall Bladder Disease (s/p cholecystectomy), Hypercholesterolemia Denies: Hepatitis (Pt denies), HIV (Pt denies), HTN (Pt denies), Chronic Kidney Disease, Seizures (Pt denies), Sexually Transmitted Disease (Pt denies) - Surgical History Surgical History: Cholecystectomy - Family History Family History: States: Unknown Family Hx - Social History Alcohol: Other (last drink was last week) - Immunization History Hx Tetanus Toxoid Vaccination: No Hx Influenza Vaccination: Yes Hx Pneumococcal Vaccination: No - Home Medications Home Medications: Ambulatory Orders Medication Instructions Recorded Insulin Aspart [Novolog] 20 unit SC TID 12/06/16 Atorvastatin [Lipitor] 20 mg PO HS 12/29/16 Insulin Detemir [Levemir] 45 units SC HS 02/24/17 Atorvastatin [Lipitor] 20 mg PO HS tab 03/02/17 Gabapentin [Neurontin] 800 mg PO BID cap 03/02/17 Insulin Detemir [Levemir] 45 units SC HS vial 03/02/17 Sertraline [Zoloft] 100 mg PO DAILY #30 tab 03/02/17 traZODone [Desyrel] 50 mg PO HS #30 tab 03/02/17 Folic Acid 1 mg PO DAILY #30 tab 04/24/17 Thiamine [Vitamin B1 Tab] 100 mg PO DAILY #30 tab 04/24/17 chlordiazePOXIDE [Chlordiazepoxide 25 mg PO Q6H PRN #4 cap 05/02/17 HCl] chlordiazePOXIDE [Chlordiazepoxide 25 mg PO Q6 PRN #4 cap 05/04/17 HCl] - Allergies Allergies/Adverse Reactions: Allergies Allergy/AdvReac Type Severity Reaction Status Date / Time No Known Allergies Allergy Verified 05/04/17 04:02 Review of Systems ROS Statement: Except As Marked, All Systems Reviewed And Found Negative Neurological: Positive for: Weakness (generalized), Other (Feels jittery). Negative for: Numbness Physical Exam - Reviewed Nursing Documentation Reviewed: Yes Vital Signs Reviewed: Yes - Physical Exam Appears: Positive for: Non-toxic, No Acute Distress Head Exam: Positive for: ATRAUMATIC, NORMAL INSPECTION, NORMOCEPHALIC Skin: Positive for: Normal Color, Warm, Dry Eye Exam: Positive for: EOMI, Normal appearance, PERRL Neck: Positive for: Normal, Supple Cardiovascular/Chest: Positive for: Regular Rate, Rhythm. Negative for: Murmur Respiratory: Positive for: Normal Breath Sounds. Negative for: Accessory Muscle Use, Respiratory Distress Pulses-Radial (L): 2+ Pulses-Radial (R): 2+ Back: Positive for: Normal Inspection. Negative for: Vertebral Tenderness Extremity: Positive for: Normal ROM, Other (Mild tremors noted). Negative for: Pedal Edema, Deformity Neurologic/Psych: Positive for: Alert, knowledge management advisor II-XII (intact), Oriented (x3), Cerebellar Tests (normal), Gait (steady). Negative for: Motor/Sensory Deficits , Aphasia, Facial Droop - Laboratory Results Result Diagrams: 05/02/17 19:51 05/02/17 19:51 - ECG O2 Sat by Pulse Oximetry: 99 (RA) Pulse Ox Interpretation: Normal - Progress Re-evaluation Time: 22:45 Condition: Improved Medical Decision Making Medical Decision Making: Time: 19:48 Initial Impression: Alcohol withdrawal, hyperglycemia Initial Plan: * Alcohol serum * CMP * Urine drug screen * CBC w/ differential * Urine dipstick * Urinalysis * Accucheck * Ativan 2 mg IV * NS IV 1000 ml at 1000 mls/hr * Reevaluation 20:05. Ordered Ativan Labs reviewed. Toxicology is negative. 22:56. Ordered clonidine Scribe Attestation: Documented by Anika Hester, acting as a scribe for Jessenia Byers MD Provider Scribe Attestation: All medical record entries made by the Scribe were at my direction and personally dictated by me. I have reviewed the chart and agree that the record accurately reflects my personal performance of the history, physical exam, medical decision making, and the department course for this patient. I have also personally directed, reviewed, and agree with the discharge instructions and disposition. Disposition - Clinical Impression Clinical Impression: Alcohol withdrawal - Disposition Referrals: Kaitlin Frost [Outside] Keith Márquez MD [Family Provider] - Disposition: Routine/Home Disposition Time: 23:14 Condition: IMPROVED Prescriptions: chlordiazePOXIDE [Chlordiazepoxide HCl] 25 mg PO Q6H PRN #4 cap PRN Reason: Agitation Instructions: Alcohol Withdrawal (ED) Forms: [facility] (Czech)
[2017-05-02 21:00] LABS: BASO # 0.1 K/uL (0.0-0.2); BASO % 1.1 % (0.0-2.0); EOS # 0.1 K/uL (0.0-0.7); EOS % 1.7 % (0.0-4.0); HEMATOCRIT 42.5 % (35.0-51.0); LYMPH # 1.4 K/uL (1.0-4.3); MEAN CELL VOLUME 87.8 fl (80.0-94.0); MEAN CORPUSCULAR HEMOGLOBIN 28.8 pg (27.0-31.0); MEAN CORPUSCULAR HGB CONC 32.8 g/dL (33.0-37.0); MEAN PLATELET VOLUME 8.9 fl (7.2-11.7); MONO # 0.5 K/uL (0.0-0.8); MONO % 7.6 % (0.0-10.0); NEUT # 4.8 K/uL (1.8-7.0); NEUT % 69.6 % (50.0-75.0); RED CELL DISTRIBUTION WIDTH 14.2 % (11.5-14.5); WHITE BLOOD COUNT 6.8 K/uL (4.8-10.8)
[2017-05-02 21:12] LABS: POTASSIUM 4.3 MMOL/L (3.6-5.0)
[2017-05-02 21:40] LABS: ALB/GLOB RATIO 1.5 (1.0-2.1); ALCOHOL SERUM < 10 mg/dl (0-10); ALKALINE PHOSPHATASE 111 U/L (38-126); ALT/SGPT 73 U/L (21-72); AST/SGOT 30 U/L (17-59); BILIRUBIN,TOTAL 0.5 mg/dl (0.2-1.3); BLOOD UREA NITROGEN 14 mg/dl (9-20); CALCIUM 8.8 mg/dL (8.4-10.2); CARBON DIOXIDE 26 mmol/L (22-30); CHLORIDE 103 mmol/L (98-107); GFR AFRICAN-AMERICAN > 60; GLUCOSE,RANDOM 200 mg/dL (75-110); SODIUM 141 mmol/l (132-148); TOTAL PROTEIN 7.8 G/DL (6.3-8.2)
[2017-05-02 22:33] LABS: RBC URINE 1 /hpf (0-3); URINE BILIRUBIN NEGATIVE (NEGATIVE); URINE BLOOD NEGATIVE (NEGATIVE); URINE COLOR YELLOW (YELLOW); URINE GLUCOSE (UA) >=500 mg/dL (Normal); URINE KETONE NEGATIVE (NEGATIVE); URINE LEUKOCYTE ESTERASE NEG Leu/uL (Negative); URINE PROTEIN NEGATIVE (NEGATIVE); URINE UROBILINOGEN 0.2-1.0 mg/dL (0.2-1.0); WBC URINE < 1 /hpf (0-5)
[2017-05-02 22:54] VITALS: BP 152/101; PULSE 84; RESP 16; TEMP 98.5
[2017-05-02 23:04] VITALS: O2SAT 99
== END 2017-05-03 00:02 | disposition home or self-care (01) ==
LOC: H.ER 19:04
DX: F10.239 Alcohol dependence with withdrawal, unspecified (principal); E11.65 Type 2 diabetes mellitus with hyperglycemia; Z86.59 Personal history of other mental and behavioral disorders; E78.00 Pure hypercholesterolemia, unspecified; Z79.4 Long term (current) use of insulin; Z90.49 Acquired absence of other specified parts of digestive tract
CPT/HCPCS: 80053; 81003; 82948; 85025; 96374; 99284; G0480; J2060; J7040

== ENCOUNTER 2017-05-04 03:56 | Emergency (ER) | payer MEDICARE, BC ==
[2017-05-04 04:02] VITALS: BMI 29.7
[2017-05-04 04:05] VITALS: RESP 18
[2017-05-04] MEDS ORDERED: Sodium Chloride 0.9% 1,000 ML IV STA (04:23)
--- NOTE | 2017-05-04 04:34 | ED PDOC ---
HPI: Psych/Substance Abuse Time Seen by Provider: 05/04/17 04:00 Chief Complaint (Nursing): Alcohol Ingestion Chief Complaint (Provider): alcohol withdrawal History Per: Patient History/Exam Limitations: no limitations Onset/Duration Of Symptoms: Hrs (8) Current Symptoms Are (Timing): Still Present Modifying Factor(s): None Severity: Moderate Involuntary Hold By: None Additional Complaint(s): Patient is a 61 year old male with PMHX anxiety, bipolar, DM, and alcoholism with hx of withdrawal who presents with c/o withdrawal symptoms. Pt was seen in the ED 2 days ago and discharged on Librium, but states RX was for only 4 tablets and insufficient for his needs. He c/o feeling anxious and is tremulous. No chest pain, V/D. He does c/o mild nausea and diaphoresis. He did drink alcohol to avert symptoms. Past Medical History Reviewed: Historical Data, Nursing Documentation, Vital Signs Vital Signs: Last Vital Signs Temp 99.1 F 05/04/17 04:02 Pulse 102 H 05/04/17 04:02 Resp 18 05/04/17 04:02 BP 160/92 H 05/04/17 04:02 Pulse Ox 97 05/04/17 04:02 - Medical History PMH: Anxiety, Bipolar Disorder, Bronchitis, Depression, Diabetes, Gastritis, Gall Bladder Disease (s/p cholecystectomy), Hypercholesterolemia Denies: Hepatitis (Pt denies), HIV (Pt denies), HTN (Pt denies), Chronic Kidney Disease, Seizures (Pt denies), Sexually Transmitted Disease (Pt denies) - Surgical History Surgical History: Cholecystectomy - Family History Family History: States: Unknown Family Hx - Living Arrangements Living Arrangements: Alone - Social History Current smoker - smoking cessation education provided: No Ex-Smoker (has not smoked in the last 12 months): No Alcohol: > 2 Drinks/Day Drugs: Denies - Immunization History Hx Tetanus Toxoid Vaccination: No Hx Influenza Vaccination: Yes Hx Pneumococcal Vaccination: No - Home Medications Home Medications: Ambulatory Orders Medication Instructions Recorded Insulin Aspart [Novolog] 20 unit SC TID 12/06/16 Atorvastatin [Lipitor] 20 mg PO HS 12/29/16 Insulin Detemir [Levemir] 45 units SC HS 02/24/17 Atorvastatin [Lipitor] 20 mg PO HS tab 03/02/17 Gabapentin [Neurontin] 800 mg PO BID cap 03/02/17 Insulin Detemir [Levemir] 45 units SC HS vial 03/02/17 Sertraline [Zoloft] 100 mg PO DAILY #30 tab 03/02/17 traZODone [Desyrel] 50 mg PO HS #30 tab 03/02/17 Folic Acid 1 mg PO DAILY #30 tab 04/24/17 Thiamine [Vitamin B1 Tab] 100 mg PO DAILY #30 tab 04/24/17 chlordiazePOXIDE [Chlordiazepoxide 25 mg PO Q6H PRN #4 cap 05/02/17 HCl] chlordiazePOXIDE [Chlordiazepoxide 25 mg PO Q6 PRN #4 cap 05/04/17 HCl] - Allergies Allergies/Adverse Reactions: Allergies Allergy/AdvReac Type Severity Reaction Status Date / Time No Known Allergies Allergy Verified 05/04/17 04:02 Review of Systems ROS Statement: Except As Marked, All Systems Reviewed And Found Negative Constitutional: Positive for: Malaise Gastrointestinal: Positive for: Nausea Psych: Positive for: Anxiety Physical Exam - Reviewed Nursing Documentation Reviewed: Yes Vital Signs Reviewed: Yes - Physical Exam Appears: Positive for: Well, Non-toxic Head Exam: Positive for: ATRAUMATIC, NORMOCEPHALIC Skin: Positive for: Normal Color, Warm, Diaphoresis Eye Exam: Positive for: Normal appearance, EOMI, PERRL ENT: Positive for: Normal ENT Inspection Neck: Positive for: Normal, Painless ROM, Supple Cardiovascular/Chest: Positive for: Regular Rate, Rhythm. Negative for: Edema, Gallop, JVD Respiratory: Positive for: Normal Breath Sounds. Negative for: Crackles, Rales , Wheezing Gastrointestinal/Abdominal: Positive for: Normal Exam, Bowel Sounds, Soft. Negative for: Tenderness Back: Positive for: Normal Inspection. Negative for: L CVA Tenderness, R CVA Tenderness Extremity: Positive for: Normal ROM. Negative for: Tenderness, Pedal Edema Neurologic/Psych: Positive for: Alert, Oriented. Negative for: Motor/Sensory Deficits - Laboratory Results Result Diagrams: 05/04/17 04:54 05/04/17 04:54 - ECG O2 Sat by Pulse Oximetry: 97 Medical Decision Making Medical Decision Makin yo male with alcohol withdrawal Labs, IV fluids and Ativan ordered Labs reviewed show no clinically sig abnormalities Pt is stable for discharge and has appointment today with Dr Liv Ochoa Alcohol Withdrawal Limited Rx Librium provided Disposition - Clinical Impression Clinical Impression: Alcohol withdrawal - Patient ED Disposition Is Patient to be Admitted: No - Disposition Referrals: Keith Márquez MD [Primary Care Provider] - Disposition: Routine/Home Disposition Time: 05:30 Condition: STABLE Prescriptions: chlordiazePOXIDE [Chlordiazepoxide HCl] 25 mg PO Q6 PRN #4 cap PRN Reason: withdrawal/anxiety Instructions: Alcohol Withdrawal (ED) Forms: [facility] [facility] (Mauritian)
[2017-05-04 04:59] LABS: BASO # 0.1 K/uL (0.0-0.2); BASO % 1.1 % (0.0-2.0); EOS # 0.3 K/uL (0.0-0.7); EOS % 3.4 % (0.0-4.0); HEMATOCRIT 40.8 % (35.0-51.0); LYMPH # 2.4 K/uL (1.0-4.3); LYMPH % 29.5 % (20.0-40.0); MEAN CELL VOLUME 88.4 fl (80.0-94.0); MEAN CORPUSCULAR HEMOGLOBIN 29.5 pg (27.0-31.0); MEAN CORPUSCULAR HGB CONC 33.4 g/dL (33.0-37.0); MEAN PLATELET VOLUME 9.6 fl (7.2-11.7); MONO # 0.6 K/uL (0.0-0.8); MONO % 7.3 % (0.0-10.0); NEUT # 4.7 K/uL (1.8-7.0); NEUT % 58.7 % (50.0-75.0); NRBC % 0.4 % (0.0-0.0); RED CELL DISTRIBUTION WIDTH 14.4 % (11.5-14.5)
[2017-05-04 05:08] LABS: ALB/GLOB RATIO 1.4 (1.0-2.1); ALCOHOL SERUM < 10 mg/dl (0-10); ALKALINE PHOSPHATASE 118 U/L (38-126); ALT/SGPT 65 U/L (21-72); AST/SGOT 33 U/L (17-59); BILIRUBIN,TOTAL 0.5 mg/dl (0.2-1.3); BLOOD UREA NITROGEN 11 mg/dl (9-20); CALCIUM 8.8 mg/dL (8.4-10.2); CARBON DIOXIDE 22 mmol/L (22-30); CHLORIDE 104 mmol/L (98-107); GFR AFRICAN-AMERICAN > 60; GLUCOSE,RANDOM 208 mg/dL (75-110); POTASSIUM 4.2 MMOL/L (3.6-5.0); SODIUM 137 mmol/l (132-148); TOTAL PROTEIN 6.9 G/DL (6.3-8.2)
[2017-05-04 05:23] VITALS: BP 151/91; PULSE 85; TEMP 99.5
[2017-05-04 06:55] VITALS: O2SAT 97
--- NOTE | 2017-05-04 08:44 | CARD ---
APPROVED REPORT EKG Measurement Heart [id number] <Conclusion> Normal sinus rhythm Normal ECG
== END 2017-05-04 06:16 | disposition home or self-care (01) ==
LOC: H.ER 03:56
DX: F10.239 Alcohol dependence with withdrawal, unspecified (principal); E11.9 Type 2 diabetes mellitus without complications; Z86.59 Personal history of other mental and behavioral disorders; Z79.4 Long term (current) use of insulin; Z87.891 Personal history of nicotine dependence; Z90.49 Acquired absence of other specified parts of digestive tract
CPT/HCPCS: 80053; 82948; 85025; 93005; 96374; 99282; G0480; J2060; J7040

== ENCOUNTER 2017-05-07 16:02 | Emergency (ER) | payer MEDICARE, BC ==
[2017-05-07 16:02] VITALS: BMI 29.7
--- NOTE | 2017-05-07 17:56 | ED PDOC ---
HPI: Psych/Substance Abuse Time Seen by Provider: 05/07/17 16:43 Chief Complaint (Nursing): Alcohol Ingestion History Per: Patient, EMS Additional Complaint(s): Pt. went to [facility] today but was told he has to sober in order to participate. Pt. admits to drinking 3 24ounce cans of beer today. Offers no complaints. Past Medical History Reviewed: Historical Data, Nursing Documentation, Vital Signs Vital Signs: Last Vital Signs Temp 98.8 F 05/07/17 16:04 Pulse 116 H 05/07/17 16:04 Resp 16 05/07/17 16:04 BP 115/86 05/07/17 16:04 Pulse Ox 95 05/07/17 16:04 - Medical History PMH: Anxiety, Bipolar Disorder, Bronchitis, Depression, Diabetes, Gastritis, Gall Bladder Disease (s/p cholecystectomy), Hypercholesterolemia Denies: Hepatitis (Pt denies), HIV (Pt denies), HTN (Pt denies), Chronic Kidney Disease, Seizures (Pt denies), Sexually Transmitted Disease (Pt denies) - Surgical History Surgical History: Cholecystectomy - Family History Family History: States: No Known Family Hx - Immunization History Hx Tetanus Toxoid Vaccination: No Hx Influenza Vaccination: Yes Hx Pneumococcal Vaccination: No - Home Medications Home Medications: Ambulatory Orders Medication Instructions Recorded Insulin Aspart [Novolog] 20 unit SC TID 12/06/16 Atorvastatin [Lipitor] 20 mg PO HS 12/29/16 Insulin Detemir [Levemir] 45 units SC HS 02/24/17 Atorvastatin [Lipitor] 20 mg PO HS tab 03/02/17 Gabapentin [Neurontin] 800 mg PO BID cap 03/02/17 Insulin Detemir [Levemir] 45 units SC HS vial 03/02/17 Sertraline [Zoloft] 100 mg PO DAILY #30 tab 03/02/17 traZODone [Desyrel] 50 mg PO HS #30 tab 03/02/17 Folic Acid 1 mg PO DAILY #30 tab 04/24/17 Thiamine [Vitamin B1 Tab] 100 mg PO DAILY #30 tab 04/24/17 chlordiazePOXIDE [Chlordiazepoxide 25 mg PO Q6H PRN #4 cap 05/02/17 HCl] chlordiazePOXIDE [Chlordiazepoxide 25 mg PO Q6 PRN #4 cap 05/04/17 HCl] - Allergies Allergies/Adverse Reactions: Allergies Allergy/AdvReac Type Severity Reaction Status Date / Time No Known Allergies Allergy Verified 05/04/17 04:02 Review of Systems ROS Statement: Except As Marked, All Systems Reviewed And Found Negative Physical Exam - Reviewed Nursing Documentation Reviewed: Yes Vital Signs Reviewed: Yes - Physical Exam Appears: Positive for: Well, Non-toxic, No Acute Distress Head Exam: Positive for: ATRAUMATIC, NORMAL INSPECTION, NORMOCEPHALIC Skin: Positive for: Normal Color, Warm. Negative for: Rash Eye Exam: Positive for: EOMI, Normal appearance, PERRL ENT: Positive for: Normal ENT Inspection Neck: Positive for: Normal, Painless ROM Cardiovascular/Chest: Positive for: Regular Rate, Rhythm Respiratory: Positive for: CNT, Normal Breath Sounds Gastrointestinal/Abdominal: Positive for: Normal Exam, Bowel Sounds, Soft. Negative for: Tenderness Back: Positive for: Normal Inspection Extremity: Positive for: Normal ROM Neurologic/Psych: Positive for: Alert, Oriented - Laboratory Results Result Diagrams: 05/07/17 17:56 05/07/17 17:56 - ECG ECG: Positive for: Interpreted By Me ECG Rhythm: Positive for: Sinus Tachycardia. Negative for: ST/T Changes Rate: 105 O2 Sat by Pulse Oximetry: 95 - Progress ED Course And Treament: Labs ordered. FSBS: 68. IV D5 NS hydration ordered. 1915 Pt. AAOx3. Seen eating dinner but had [address] head w/o contrast ordered. Repeat FS: 93. Banana bag IV, zofran 4mg IV, troponin, EKG, UA ordered. Pt. denies chest pain, abdominal pain, tremors, fever. Disposition - Clinical Impression Clinical Impression: Hypoglycemia, Alcohol abuse - Patient ED Disposition Is Patient to be Admitted: Transfer of Care (Signed out to Suzanna DAVALOS pending CT head, lab results and final disposition.) - Disposition Disposition Time: 20:00 Condition: STABLE Forms: [employer] (Northern Irish)
[2017-05-07 18:02] LABS: BASO # 0.1 K/uL (0.0-0.2); BASO % 1.1 % (0.0-2.0); EOS # 0.2 K/uL (0.0-0.7); HEMATOCRIT 41.1 % (35.0-51.0); LYMPH # 1.7 K/uL (1.0-4.3); LYMPH % 22.3 % (20.0-40.0); MEAN CELL VOLUME 87.6 fl (80.0-94.0); MEAN CORPUSCULAR HEMOGLOBIN 28.9 pg (27.0-31.0); MEAN PLATELET VOLUME 8.1 fl (7.2-11.7); MONO # 0.5 K/uL (0.0-0.8); MONO % 6.8 % (0.0-10.0); NEUT # 5.3 K/uL (1.8-7.0); NEUT % 67.8 % (50.0-75.0); NRBC % 0.1 % (0.0-0.0); RED CELL DISTRIBUTION WIDTH 14.5 % (11.5-14.5); WHITE BLOOD COUNT 7.8 K/uL (4.8-10.8)
[2017-05-07 19:01] LABS: ALB/GLOB RATIO 1.5 (1.0-2.1); ALCOHOL SERUM < 10 mg/dl (0-10); ALKALINE PHOSPHATASE 85 U/L (38-126); ALT/SGPT 59 U/L (21-72); AST/SGOT 35 U/L (17-59); BILIRUBIN,TOTAL 0.5 mg/dl (0.2-1.3); BLOOD UREA NITROGEN 8 mg/dl (9-20); CALCIUM 9.6 mg/dL (8.4-10.2); CARBON DIOXIDE 29 mmol/L (22-30); CHLORIDE 103 mmol/L (98-107); GFR AFRICAN-AMERICAN > 60; GLUCOSE,RANDOM 75 mg/dL (75-110); POTASSIUM 3.7 MMOL/L (3.6-5.0); SODIUM 143 mmol/l (132-148); TOTAL PROTEIN 7.4 G/DL (6.3-8.2)
[2017-05-07] MEDS ORDERED: Multivitamin (MVI) 10 ML, Thiamine 100 MG in Sodium Chloride 0.9% 1,000 ML IV ONE ×2 (19:13→21:17)
[2017-05-07 19:43] LABS: ABG ALLEN TEST YES; ARTERIAL BLOOD GAS O2 CAPACITY 19.4 mL/dL (16-24); ARTERIAL BLOOD GAS O2 CONTENT 19.1 ML/dL (15-23); ARTERIAL BLOOD GAS PH 7.44 (7.35-7.45); ARTERIAL BLOOD GAS PO2 75 mm/Hg (80-100); ARTERIAL BLOOD HGB O2 SAT 94.1 % (95.0-98.0); CARBOXYHEMOGLOBIN 2.7 % (0.5-1.5); HHB 1.6 % (0.0-5.0); METHEMOGLOBIN 1.6 % (0.0-3.0)
--- NOTE | 2017-05-07 20:45 | CT ---
EXAM: CT Head Without Intravenous Contrast EXAM DATE/TIME: 05/07/2017 7:59 PM CLINICAL HISTORY: 61 years old, male; Signs and symptoms; Altered mental status/memory loss; Additional info: AMS TECHNIQUE: Axial computed tomography images of the head/brain without intravenous contrast. All CT scans at this facility use one or more dose reduction techniques, viz.: automated exposure control; ma/kV adjustment per patient size (including targeted exams where dose is matched to indication; i.e. head); or iterative reconstruction technique. Coronal and sagittal reformatted images were created and reviewed. COMPARISON: There are no prior studies for comparison. FINDINGS: Brain: There is prominence of sulci gyri and ventricles. There is no midline shift. There is decreased attenuation in periventricular white matter. There are no focal masses. There are no focal hemorrhages. Stauffer-white differentiation is visualized. Ventricles: See above. Bones: There is a left parietal skull defect with a metallic foreign body. There are no acute fractures. Ears and mastoids: Middle ears and mastoids are unremarkable. Soft tissues: unremarkable Sinuses: There is no acute sinusitis. Orbits: Orbital contents are unremarkable. IMPRESSION: No acute intracranial abnormality
[2017-05-07 23:44] VITALS: RESP 17; TEMP 98.2
[2017-05-07 23:44] LABS: URINE BILIRUBIN NEGATIVE (NEGATIVE); URINE BLOOD NEGATIVE (NEGATIVE); URINE COLOR YELLOW (YELLOW); URINE GLUCOSE (UA) NEG (Normal); URINE KETONE NEGATIVE (NEGATIVE); URINE LEUKOCYTE ESTERASE NEG Leu/uL (Negative); URINE PROTEIN NEGATIVE (NEGATIVE); URINE UROBILINOGEN 0.2-1.0 mg/dL (0.2-1.0); WBC URINE < 1 /hpf (0-5)
[2017-05-07 23:45] VITALS: BP 125/91
--- NOTE | 2017-05-08 00:08 | ED PDOC ---
- Laboratory Results Result Diagrams: 05/07/17 17:56 05/07/17 17:56 - ECG O2 Sat by Pulse Oximetry: 95 - Progress ED Course And Treament: pt signed out to singer songwriter pending Ct scan of head, labs and BS monitoring. pt was sent to ED from [facility] rehab for concerns of intoxication because pt was very somnolent in ER BS <100 and continue to decrease. Alcohol is negative, Ct scan and labs order. pt given the following: Orders Category Date Time Status ABG [ARTERIAL BLOOD GAS] Stat BG 05/07/17 19:35 Completed HEAD W/O CONTRAST [CT] Stat CT 05/07/17 19:59 Completed EKG [ELECTROCARDIOGRAM] Stat Cardiology 05/07/17 19:07 Ordered ALCOHOL SERUM Stat Chem 05/07/17 17:56 Completed COMP METABOLIC PANEL Stat Chem 05/07/17 17:56 Completed DRUG SCREEN, URINE Stat Chem 05/07/17 23:39 Completed TROPONIN I Stat Chem 05/07/17 19:14 Completed EKG-ED [EDNURTX] STAT ED Care 05/07/17 19:07 Active CHEST PORTABLE [RAD] Stat Exams 05/07/17 19:08 Taken CBC (WITH DIFFERENTIAL) Stat OTONIEL 05/07/17 17:56 Completed Dextrose 5%-0.9% NS [Dextrose 5%-0.9% NS 500 ml] 500 ml Med 05/07/17 17:45 Discontinued IV 150 mls/hr LORazepam [Ativan] Med 05/07/17 19:13 Discontinued 1 mg IVP STAT STA LORazepam [Ativan] Med 05/07/17 20:09 Discontinued 2 mg .ROUTE .STK-MED ONE Ondansetron [Zofran Inj] Med 05/07/17 20:09 Discontinued 4 mg .ROUTE .STK-MED ONE Ondansetron [Zofran Inj] Med 05/07/17 19:08 Discontinued 4 mg IVP STAT STA Sodium Chloride 0.9% 1,000 ml Med 05/07/17 19:13 Discontinued Multivitamin (MVI) [M.V.I.-12 Inj] 10 ml Thiamine [Vitamin B1 Inj] 100 mg IV 150 mls/hr Sodium Chloride 0.9% 1,000 ml Med 05/07/17 21:17 Discontinued Multivitamin (MVI) [M.V.I.-12 Inj] 10 ml Thiamine [Vitamin B1 Inj] 100 mg IV 250 mls/hr URINALYSIS Stat URINALYSIS 05/07/17 23:39 Completed Medical Decision Making Medical Decision Making: pt continued to improve in ER. VS improved, pt tolerate PO FS increased >100. CT head: FINDINGS: Brain: There is prominence of sulci gyri and ventricles. There is no midline shift. There is decreased attenuation in periventricular white matter. There are no focal masses. There are no focal hemorrhages. Stauffer-white differentiation is visualized. Ventricles: See above. Bones: There is a left parietal skull defect with a metallic foreign body. There are no acute fractures. Ears and mastoids: Middle ears and mastoids are unremarkable. Soft tissues: unremarkable Sinuses: There is no acute sinusitis. Orbits: Orbital contents are unremarkable. IMPRESSION: No acute intracranial abnormality Thank you for allowing us to participate in the care of your patient. Dictated and Authenticated by: Kerry Hayes MD 05/07/2017 8:45 PM Eastern Time ([place] & [place]) pt d/c with f.u with pmd. stable for d/c at this time. Disposition - Clinical Impression Clinical Impression: Hypoglycemia, Alcohol abuse - POA Present On Arrival: None - Disposition Referrals: [facility] [Outside] Disposition: Routine/Home Disposition Time: 00:08 Condition: STABLE Instructions: Diabetic Hypoglycemia (DC) Forms: [employer] (Macedonian) Progress Note - Review of Symptoms General: No: Chills, Night Sweats, Fatigue, Malaise, Appetite, Other HEENT: No: Head Aches, Visual Changes, Eye Pain, Ear Pain, Dysphasia, Sinus Congestion, Post Nasal Drip, Sore Throat, Other Pulmonary: No: Dyspnea, Cough, Pleuritic Chest Pain, Other Cardiovascular: No: Chest Pain, Palpitations, Orthopnea, Paroxysmal Noc. Dyspnea , Edema, Light Headedness, Other Gastrointestinal: No: Nausea, Vomiting, Abdominal Pain, Diarrhea, Constipation, Melena, Hematochezia, Other Genitourinary: No: Dysuria, Frequency, Incontinence, Hematuria, Retention, Other Musculoskeletal: No: Muscle Pain, Joint Pain, Other Neurological: No: Weakness, Numbness, Incoordination, Change in speech, Confusion, Seizures, Other
[2017-05-08 00:49] VITALS: PULSE 94; O2SAT 98
--- NOTE | 2017-05-08 08:46 | RAD ---
HISTORY: vomiting COMPARISON: Frontal chest radiograph 04/21/2017. FINDINGS: LUNGS: Mild chronic volume loss of the right lung is again appreciated with fibrosis or chronic pleural effusion the right costophrenic sulcus again appreciated. Pleural thickening the right hemithorax is again noted inferolaterally. No infiltrate bilaterally. No pneumothorax bilaterally either. No left pleural effusion CARDIOVASCULAR: Cardiac size appears stable. No pulmonary vascular derangement identified. OSSEOUS STRUCTURES: No significant abnormalities. VISUALIZED UPPER ABDOMEN: Normal. OTHER FINDINGS: None. IMPRESSION: No acute cardiopulmonary is appreciable. Chronic volume loss right lung again evident including fibrosis of the right costophrenic sulcus or chronic pleural effusion. Pleural thickening of the the right chest wall is again seen laterally.
--- NOTE | 2017-05-08 17:48 | CARD ---
APPROVED REPORT EKG Measurement Heart [id number] <Conclusion> Sinus tachycardia Otherwise normal ECG
== END 2017-05-08 00:21 | disposition home or self-care (01) ==
LOC: H.ER 16:02
DX: E16.2 Hypoglycemia, unspecified (principal); F10.10 Alcohol abuse, uncomplicated; E11.9 Type 2 diabetes mellitus without complications; Z86.59 Personal history of other mental and behavioral disorders; Z79.4 Long term (current) use of insulin; Z90.49 Acquired absence of other specified parts of digestive tract
CPT/HCPCS: 96374; 96375; 96376; 99284; J2060; J2405; J3411; J7040; J7042

== ENCOUNTER 2017-05-08 14:13 | Inpatient (IN) | payer MEDICARE, BC ==
[2017-05-08 14:13] VITALS: BMI 29.7
[2017-05-08 14:20] VITALS: O2SAT 98
--- NOTE | 2017-05-08 15:00 | ED PDOC ---
HPI: Psych/Substance Abuse Time Seen by Provider: 05/08/17 14:41 Chief Complaint (Nursing): Psychiatric Evaluation Chief Complaint (Provider): Psychiatric Evaluation History Per: Patient History/Exam Limitations: no limitations Onset/Duration Of Symptoms: Days (x 1) Current Symptoms Are (Timing): Still Present Suicide/Self Injury Attempted (Context): None Modifying Factor(s): Alcohol Associated Symptoms: Suicidal Thoughts Additional History Per: Family Additional Complaint(s): Juan C Heath is a 61 y/o male with a past medical history of diabetes, hypercholesterolemia, and anxiety, who was brought to the ED via EMS for psychiatric evaluation. Patient reports he drank a lot of alcohol earlier today and went to a rehab center, where he verbalized suicidal ideation and EMS was called. He admits to having thoughts of cutting himself with a razor, but has not attempted to do so. Denies any drug use. Brother also states the patient posted on Facebook regarding his suicidal plan. PMD: Non-[facility] provider Past Medical History Reviewed: Historical Data, Nursing Documentation, Vital Signs Vital Signs: Last Vital Signs Temp 98 F 05/08/17 14:17 Pulse 111 H 05/08/17 14:17 Resp 20 05/08/17 14:17 BP 138/84 05/08/17 14:17 Pulse Ox 98 05/08/17 14:17 - Medical History PMH: Anxiety, Bipolar Disorder, Bronchitis, Depression, Diabetes, Gastritis, Gall Bladder Disease (s/p cholecystectomy), Hypercholesterolemia Denies: Hepatitis (Pt denies), HIV (Pt denies), HTN (Pt denies), Chronic Kidney Disease, Seizures (Pt denies), Sexually Transmitted Disease (Pt denies) - Surgical History Surgical History: Cholecystectomy - Family History Family History: States: Unknown Family Hx - Social History Current smoker - smoking cessation education provided: Yes Alcohol: > 2 Drinks/Day Drugs: Denies - Immunization History Hx Tetanus Toxoid Vaccination: No Hx Influenza Vaccination: Yes Hx Pneumococcal Vaccination: No - Home Medications Home Medications: Ambulatory Orders Medication Instructions Recorded Insulin Aspart [Novolog] 20 unit SC TID 12/06/16 Atorvastatin [Lipitor] 20 mg PO HS tab 03/02/17 Gabapentin [Neurontin] 800 mg PO BID cap 03/02/17 Insulin Detemir [Levemir] 45 units SC HS vial 03/02/17 Sertraline [Zoloft] 100 mg PO DAILY #30 tab 03/02/17 traZODone [Desyrel] 50 mg PO HS #30 tab 03/02/17 Folic Acid 1 mg PO DAILY #30 tab 04/24/17 Thiamine [Vitamin B1 Tab] 100 mg PO DAILY #30 tab 04/24/17 chlordiazePOXIDE [Chlordiazepoxide 25 mg PO Q6 PRN #4 cap 05/04/17 HCl] - Allergies Allergies/Adverse Reactions: Allergies Allergy/AdvReac Type Severity Reaction Status Date / Time No Known Allergies Allergy Verified 05/04/17 04:02 Review of Systems ROS Statement: Except As Marked, All Systems Reviewed And Found Negative Constitutional: Negative for: Fever Cardiovascular: Negative for: Chest Pain Respiratory: Negative for: Cough, Shortness of Breath Gastrointestinal: Negative for: Nausea, Vomiting, Diarrhea Skin: Negative for: Lesions Psych: Positive for: Suicidal ideation, Other (Alcohol intoxication) Physical Exam - Reviewed Nursing Documentation Reviewed: Yes Vital Signs Reviewed: Yes - Physical Exam Appears: Positive for: Non-toxic, No Acute Distress Head Exam: Positive for: ATRAUMATIC, NORMAL INSPECTION, NORMOCEPHALIC Skin: Positive for: Normal Color (with no lacerations or lesions noted), Warm, Dry Eye Exam: Positive for: EOMI, Normal appearance, PERRL Neck: Positive for: Normal, Painless ROM, Supple Cardiovascular/Chest: Positive for: Regular Rate, Rhythm. Negative for: Murmur Respiratory: Positive for: Normal Breath Sounds. Negative for: Accessory Muscle Use, Respiratory Distress Pulses-Dorsalis Pedis (L): 2+ Pulses-Dorsalis Pedis (R): 2+ Gastrointestinal/Abdominal: Positive for: Normal Exam, Soft. Negative for: Tenderness Back: Positive for: Normal Inspection. Negative for: L CVA Tenderness, R CVA Tenderness, Vertebral Tenderness Extremity: Positive for: Normal ROM. Negative for: Pedal Edema, Deformity Neurologic/Psych: Positive for: Alert, Oriented (x3). Negative for: Motor/ Sensory Deficits - Laboratory Results Result Diagrams: 05/08/17 15:05 05/08/17 15:05 Interpretation Of Abn Labs: no acute - ECG ECG: Positive for: Interpreted By Me, Viewed By Me ECG Rhythm: Positive for: Normal QRS, Normal ST Segment, Sinus Rhythm O2 Sat by Pulse Oximetry: 98 (RA) Pulse Ox Interpretation: Normal - Radiology X-Ray: Interpreted by Me, Viewed By Me X-Ray Interpretation: No Acute Disease - Progress ED Course And Treament: 1648: Stable. AAOx3. Pain free. Medically stable for psych. Crisis accepted. Will admit. Medical Decision Making Medical Decision Making: Time: 14:50 Initial Impression: Crisis evaluation Initial Plan: --CMP --Alcohol serum --Urine drug screen --Troponin I --CBC w/ differential --PTT --Prothrombin time --Chest x-ray --Urine dipstick --Accucheck --EKG --Pending crisis evaluation Scribe Attestation: Documented by Anika Hester, acting as a scribe for Omar Finch MD Provider Scribe Attestation: All medical record entries made by the Scribe were at my direction and personally dictated by me. I have reviewed the chart and agree that the record accurately reflects my personal performance of the history, physical exam, medical decision making, and the department course for this patient. I have also personally directed, reviewed, and agree with the discharge instructions and disposition. Disposition - Clinical Impression Clinical Impression: Depressed - Patient ED Disposition Is Patient to be Admitted: Yes Counseled Patient/Family Regarding: Studies Performed, Diagnosis - Disposition Disposition Time: 16:49 Condition: FAIR - Pt Status Changed To: Hospital Disposition Of: Inpatient - Admit Certification Admit to Inpatient:: After my assessment, the patient will require hospitalization for at least two midnights. This is because of the severity of symptoms shown, intensity of services needed, and/or the medical risk in this patient being treated as an outpatient. - POA Present On Arrival: None
[2017-05-08 15:25] LABS: BASO % 0.7 % (0.0-2.0); EOS # 0.2 K/uL (0.0-0.7); EOS % 2.8 % (0.0-4.0); HEMATOCRIT 38.9 % (35.0-51.0); LYMPH # 1.4 K/uL (1.0-4.3); LYMPH % 25.4 % (20.0-40.0); MEAN CELL VOLUME 88.5 fl (80.0-94.0); MEAN CORPUSCULAR HEMOGLOBIN 29.1 pg (27.0-31.0); MEAN CORPUSCULAR HGB CONC 32.9 g/dL (33.0-37.0); MEAN PLATELET VOLUME 8.3 fl (7.2-11.7); MONO # 0.4 K/uL (0.0-0.8); MONO % 6.9 % (0.0-10.0); NEUT # 3.5 K/uL (1.8-7.0); NEUT % 64.2 % (50.0-75.0); RED CELL DISTRIBUTION WIDTH 14.6 % (11.5-14.5); WHITE BLOOD COUNT 5.4 K/uL (4.8-10.8)
[2017-05-08 15:38] LABS: ALB/GLOB RATIO 1.5 (1.0-2.1); ALCOHOL SERUM < 10 mg/dl (0-10); ALKALINE PHOSPHATASE 88 U/L (38-126); ALT/SGPT 55 U/L (21-72); AST/SGOT 25 U/L (17-59); BILIRUBIN,TOTAL 0.4 mg/dl (0.2-1.3); BLOOD UREA NITROGEN 8 mg/dl (9-20); CALCIUM 9.4 mg/dL (8.4-10.2); CARBON DIOXIDE 25 mmol/L (22-30); CHLORIDE 103 mmol/L (98-107); GFR AFRICAN-AMERICAN > 60; GLUCOSE,RANDOM 211 mg/dL (75-110); POTASSIUM 4.3 MMOL/L (3.6-5.0); SODIUM 140 mmol/l (132-148); TOTAL PROTEIN 7.2 G/DL (6.3-8.2)
[2017-05-08 16:52] LABS: PARTIAL THROMBOPLASTIN TIME 32.7 Seconds (25.6-37.1)
--- NOTE | 2017-05-08 17:38 | RAD ---
HISTORY: psych eval COMPARISON: No prior. FINDINGS: LUNGS: No active pulmonary disease. PLEURA: No significant pleural effusion identified, no pneumothorax apparent. CARDIOVASCULAR: No radiographic findings to suggest acute or significant cardiovascular disease. OSSEOUS STRUCTURES: No significant abnormalities.Incidental finding(s): Non healed distal right clavicular fracture VISUALIZED UPPER ABDOMEN: Normal. OTHER FINDINGS: None. IMPRESSION: No active disease. No significant interval change compared to the prior examination(s).
[2017-05-08] MEDS ORDERED: Magnesium Hydroxide Susp 30 ml UD PO PRN (21:10)
[2017-05-08] MEDS ORDERED: Alum-Mag Hydrox-Simethicone Susp (30 mL) PO PRN (21:10)
[2017-05-08] MEDS ORDERED: Bismuth Subsalicylate 262 mg/15 ml Sus (240 ml) PO PRN (21:10)
--- NOTE | 2017-05-08 21:24 | PCM.BM ---
<Mahad Chandler - Last Filed: 05/08/17 21:22> Treatment Plan Problems - Problems identified on initial assessmt Hopelessness/Helplessness Date Initiated: 05/08/17 Time Initiated: 21:22 Assessment reference: NA Status: Active Treatment assets and liabiliti Patient Assests: adapts well, cooperative, resourceful, self-reliant, ADL independent, negotiates basic needs, cognitively intact Patient Liabilities: substance abuse, medical problems - Milieu Protocol Maintain good personal hygiene: daily Encourage regular showers, daily Remind patient to perform daily oral care, daily Assist patient to perform ADL's Maintain personal safety: every shift Educate patient to report safety concerns to staff, every shift Monitor environment for contraband/sharps Medication safety: Monitor for expected outcome, potential side effects: every shift, Assess barriers to learning: every shift, Assess readiness for medication education: every shift <Melyssa Gomez - Last Filed: 05/09/17 09:20> - Diagnosis (1) Alcohol use disorder Status: Acute Interventions: Medication management, Individual and group therapy, Psychoeducation 05/09/17 09:21 (2) Substance induced mood disorder Status: Acute Interventions: Medication management, Individual and group therapy, Psychoeducation 05/09/17 09:21 <Gianni Araujo - Last Filed: 05/10/17 07:32> Family Contact Family involvement: Famliy/SO not involved Family contact: Patient declines to allow family contact at present Family contact name: Pt refused to allow contact. - Goals for Treatment Patient goals for treatment: Pt reported he is fine now and was not trying to harm himself, but was only holding the razor. However, pt is agreeable to stay through the weekend. Discharge/Continuing Care - Education Needs Education Needs: Patient Medication, Patient Diagnosis/Disease Process, Patient Coping Skills, Patient Community resources, Patient Aftercare Safety Plan - Discharge Discharge Criteria: Tolerates medication w/o severe side effects, Free of Suicidal thoughts, Free of agitation, Normal sleep pattern, No longer exhibiting s/s of withdrawal, Reduction of target symptoms Discharge to:: Home - Treatment Team Participation Was Patient/Family/SO present at Treatment Team Meeting: Yes
[2017-05-09 06:55] LABS: IRON 87 ug/dL (49-181)
[2017-05-09 06:58] LABS: BLOOD UREA NITROGEN 10 mg/dl (9-20); CALCIUM 8.8 mg/dL (8.4-10.2); CARBON DIOXIDE 29 mmol/L (22-30); CHLORIDE 104 mmol/L (98-107); CHOLESTEROL 164 mg/dL (0-199); GFR AFRICAN-AMERICAN > 60; GLUCOSE,RANDOM 156 mg/dL (75-110); POTASSIUM 3.9 MMOL/L (3.6-5.0); SODIUM 140 mmol/l (132-148)
[2017-05-09 07:10] LABS: T4 4.86 ug/dl (5.5-11.0)
[2017-05-09 07:24] LABS: THYROID STIMULATING HORMONE 0.74 mIU/ML (0.46-4.68)
--- NOTE | 2017-05-09 08:33 | CP.PCM.CON ---
<London Pretty - Last Filed: 05/09/17 15:04> History of Present Illness - History of Present Illness History of Present Illness: 61 year old male patient with PMHx of diabetes, hypercholesterolemia, anxiety, gastritis, bipolar disorder, PTSD, partial hearing loss and alcohol abuse seen in Psych after being brought into the hospital yesterday displaying suicidal tendencies while drunk. Patient states that he drinks 2-3 beers per day on average and that when he is drunk he often becomes depressed and expresses desires to kill himself. Patient denies any homicidal ideations at this time or when he is under the influence of alcohol. Patient also states that he used to drink much larger quantities of alcohol years ago but he got gastritis as a result and now tries to only drink beer. He denies any symptoms of gastritis at this time. Patient denies any symptoms of alcohol withdrawal at this time and states that overall he feels well. He denies any other complaints including N/V/ F/C/CP/SOB/constipation/urinary retention/posterior calf pain. Meds: Lipitor, Cogentin, Chlordiazepoxide, Exenatide microspheres, Gabapentin, Atarax, Novolog, Levemir, Ativan, Zoloft All: NKDA PSH: denies FH: lives alone SH: occasional cigar smoker, alcohol abuse, denies illicit drug use Review of Systems - Review of Systems Review of Systems: ROS per HPI. All other systems reviewed and negative Past Patient History - Infectious Disease Hx of Infectious Diseases: None - Tetanus Immunizations Tetanus Immunization: Unknown - Past Medical History & Family History Past Medical History?: Yes - Past Social History Alcohol: > 2 Drinks/Day Drugs: Denies - CARDIAC Hx Hypercholesterolemia: Yes - PULMONARY Hx Tuberculosis: No - NEUROLOGICAL HX Cerebrovascular Accident: No Hx Seizures: No (Pt denies) - HEENT Hx HEENT Problems: Yes Hx Deafness: Yes (left ear very [place] with hearing aid) - RENAL Hx Chronic Kidney Disease: No - ENDOCRINE/METABOLIC Hx Endocrine Disorders: Yes Hx Diabetes Mellitus Type 2: Yes - HEMATOLOGICAL/ONCOLOGICAL Hx Cancer: No Hx Human Immunodeficiency Virus (HIV): No (Pt denies) - INTEGUMENTARY Hx Dermatological Problems: No - MUSCULOSKELETAL/RHEUMATOLOGICAL Hx Musculoskeletal Disorders: No Hx Falls: No - GASTROINTESTINAL Hx Gall Bladder Disease: Yes (s/p cholecystectomy) Hx Gastritis: Yes - GENITOURINARY/GYNECOLOGICAL Hx Prostate Problems: Yes - PSYCHIATRIC Hx Substance Use: Yes (Alcohol) - SURGICAL HISTORY Other/Comment: removal of chest mass - ANESTHESIA Hx Anesthesia: Yes Hx Anesthesia Reactions: No Hx Malignant Hyperthermia: No Meds Allergies/Adverse Reactions: Allergies Allergy/AdvReac Type Severity Reaction Status Date / Time No Known Allergies Allergy Verified 05/04/17 04:02 - Medications Medications: Current Medications Acetaminophen (Tylenol 325mg Tab) 650 mg PO Q4 PRN PRN Reason: Pain, moderate (4-7) Al Hydrox/Mg Hydrox/Simethicone (Maalox Plus 30 Ml) 30 ml PO Q4 PRN PRN Reason: Dyspepsia Atorvastatin Calcium (Lipitor) 20 mg PO HS [facility] Bismuth Subsalicylate (Pepto-Bismol) 524 mg PO Q4 PRN PRN Reason: Diarrhea Folic Acid (Folic Acid) 1 mg PO DAILY [facility] Gabapentin (Neurontin) 800 mg PO BID [facility]M Insulin Detemir (Levemir) 80 units SC HS [facility]M Insulin Human Lispro (Humalog) 20 units SC TID JM Insulin Human Lispro (Humalog) 0 units SC ACHS [facility] PRN Reason: Protocol Lorazepam (Ativan) 0.5 mg PO HS PRN PRN Reason: Insomnia Stop: 05/22/17 21:11 Lorazepam (Ativan) 0.5 mg PO Q6 PRN PRN Reason: Anixety/Agitation Stop: 05/22/17 21:11 Lorazepam (Ativan) 1 mg PO TID JM Magnesium Hydroxide (Milk Of Magnesia) 30 ml PO HS PRN PRN Reason: Constipation Pneumococcal Polyvalent Vaccine (Pneumovax 23 Vaccine) 0.5 ml IM .ONCE ONE Stop: 05/09/17 10:01 Thiamine HCl (Vitamin B1 Tab) 100 mg PO DAILY [facility] Physical Exam - Constitutional Appears: Well, Non-toxic, No Acute Distress - Head Exam Head Exam: ATRAUMATIC, NORMOCEPHALIC - Eye Exam Eye Exam: EOMI, PERRL Pupil Exam: PERRL - ENT Exam ENT Exam: Mucous Membranes Moist - Neck Exam Neck exam: Positive for: Normal Inspection. Negative for: Tenderness - Respiratory Exam Respiratory Exam: Clear to Auscultation Bilateral, NORMAL BREATHING PATTERN - Cardiovascular Exam Cardiovascular Exam: REGULAR RHYTHM - GI/Abdominal Exam GI & Abdominal Exam: Soft. absent: Distended, Firm, Guarding - Rectal Exam Rectal Exam: Deferred - Extremities Exam Extremities exam: Positive for: normal inspection - Neurological Exam Neurological exam: Alert, Oriented x3 - Psychiatric Exam Psychiatric exam: Normal Affect, Normal Mood, Suicidal Ideation - Skin Skin Exam: Intact, Normal Color, Warm Results - Vital Signs Recent Vital Signs: Last Vital Signs Temp 97.7 F 05/09/17 06:00 Pulse 72 05/09/17 06:00 Resp 20 05/09/17 06:00 BP 125/82 05/09/17 06:00 Pulse Ox 98 05/08/17 16:49 - Labs Result Diagrams: 05/08/17 15:05 05/09/17 05:30 Labs: Laboratory Results - last 24 hr 05/08/17 05/08/17 05/08/17 15:05 15:05 15:05 WBC 5.4 RBC 4.39 L Hgb 12.8 Hct 38.9 MCV 88.5 MCH 29.1 MCHC 32.9 L RDW 14.6 H Plt Count 168 MPV 8.3 Neut % (Auto) 64.2 Lymph % (Auto) 25.4 [place] % (Auto) 6.9 Eos % (Auto) 2.8 Baso % (Auto) 0.7 Neut # 3.5 Lymph # 1.4 [place] # 0.4 Eos # 0.2 Baso # 0.0 PT 10.5 INR 1.0 APTT 32.7 Sodium 140 Potassium 4.3 Chloride 103 Carbon Dioxide 25 Anion Gap 16 BUN 8 L Creatinine 0.9 Est GFR ( Amer) > 60 Est GFR (Non-Af Amer) > 60 POC Glucose (mg/dL) Random Glucose 211 H Calcium 9.4 Iron TIBC % Saturation Ferritin Total Bilirubin 0.4 AST 25 ALT 55 Alkaline Phosphatase 88 Troponin I < 0.0120 Total Protein 7.2 Albumin 4.3 Globulin 2.9 Albumin/Globulin Ratio 1.5 Triglycerides Cholesterol LDL Cholesterol Direct HDL Cholesterol Vitamin B12 Free T4 Thyroxine (T4) TSH 3rd Generation Urine Opiates Screen Urine Methadone Screen Ur Barbiturates Screen Ur Phencyclidine Scrn Ur Amphetamines Screen U Benzodiazepines Scrn U Oth Cocaine Metabols U Cannabinoids Screen Alcohol, Quantitative < 10 05/08/17 05/08/17 05/08/17 15:11 16:00 20:38 WBC RBC Hgb Hct MCV MCH MCHC RDW Plt Count MPV Neut % (Auto) Lymph % (Auto) [place] % (Auto) Eos % (Auto) Baso % (Auto) Neut # Lymph # [place] # Eos # Baso # PT INR APTT Sodium Potassium Chloride Carbon Dioxide Anion Gap BUN Creatinine Est GFR ( Amer) Est GFR (Non-Af Amer) POC Glucose (mg/dL) 208 H 190 H Random Glucose Calcium Iron TIBC % Saturation Ferritin Total Bilirubin AST ALT Alkaline Phosphatase Troponin I Total Protein Albumin Globulin Albumin/Globulin Ratio Triglycerides Cholesterol LDL Cholesterol Direct HDL Cholesterol Vitamin B12 Free T4 Thyroxine (T4) TSH 3rd Generation Urine Opiates Screen Negative Urine Methadone Screen Negative Ur Barbiturates Screen Negative Ur Phencyclidine Scrn Negative Ur Amphetamines Screen Negative U Benzodiazepines Scrn Positive U Oth Cocaine Metabols Negative U Cannabinoids Screen Negative Alcohol, Quantitative 05/09/17 05/09/17 05/09/17 05:30 05:30 05:30 WBC RBC Hgb Hct MCV MCH MCHC RDW Plt Count MPV Neut % (Auto) Lymph % (Auto) [place] % (Auto) Eos % (Auto) Baso % (Auto) Neut # Lymph # [place] # Eos # Baso # PT INR APTT Sodium 140 Potassium 3.9 Chloride 104 Carbon Dioxide 29 Anion Gap 11 BUN 10 Creatinine 0.8 Est GFR ( Amer) > 60 Est GFR (Non-Af Amer) > 60 POC Glucose (mg/dL) Random Glucose 156 H Calcium 8.8 Iron 87 TIBC 356 % Saturation 25 Ferritin 84.0 Total Bilirubin AST ALT Alkaline Phosphatase Troponin I Total Protein Albumin Globulin Albumin/Globulin Ratio Triglycerides 260 H D Cholesterol 164 LDL Cholesterol Direct 83 HDL Cholesterol 47 Vitamin B12 919 Free T4 0.57 L Thyroxine (T4) 4.86 L TSH 3rd Generation 0.74 Urine Opiates Screen Urine Methadone Screen Ur Barbiturates Screen Ur Phencyclidine Scrn Ur Amphetamines Screen U Benzodiazepines Scrn U Oth Cocaine Metabols U Cannabinoids Screen Alcohol, Quantitative Assessment & Plan - Assessment and Plan (Free Text) Assessment: 61 year old male patient with PMHx of diabetes, hypercholesterolemia, anxiety, gastritis, bipolar disorder, PTSD, partial hearing loss and alcohol abuse seen in Psych after being brought into the hospital yesterday displaying suicidal tendencies while drunk. Plan: 1. Bipolar disorder with suicidal ideation - Continue treatment and meds per Psych 2. Alcohol abuse - Withdrawal precautions - Continue Folic Acid 1 mg PO qd, Thiamine 100 mg PO qd 3. Diabetes mellitus - Random glucose elevated at 156 - Continue Levemir 35 units SC HS, Humalog 20 units SC ACHS - F/u HgA1c - Continue Consistent Carbohydrate diet - Continue Accucheck 4. Hypercholesterolemia - Triglycerides elevated at 260 - Continue medications: Lipitor 20 mg PO HS 5. Neuropathy - Continue Neurontin 800 mg PO bid - Date & Time Date: 05/09/17 Time: 08:51 <Angelica Lees - Last Filed: 05/09/17 17:54> Meds - Medications Medications: Current Medications Acetaminophen (Tylenol 325mg Tab) 650 mg PO Q4 PRN PRN Reason: Pain, moderate (4-7) Al Hydrox/Mg Hydrox/Simethicone (Maalox Plus 30 Ml) 30 ml PO Q4 PRN PRN Reason: Dyspepsia Atorvastatin Calcium (Lipitor) 20 mg PO HS [facility] Bismuth Subsalicylate (Pepto-Bismol) 524 mg PO Q4 PRN PRN Reason: Diarrhea Folic Acid (Folic Acid) 1 mg PO DAILY [facility] Last Admin: 05/09/17 09:29 Dose: 1 mg Gabapentin (Neurontin) 800 mg PO BID [facility] Last Admin: 05/09/17 17:11 Dose: 800 mg Insulin Detemir (Levemir) 35 units SC HS [facility] Insulin Human Lispro (Humalog) 0 units SC ACHS [facility] PRN Reason: Protocol Last Admin: 05/09/17 17:10 Dose: 2 unit Lorazepam (Ativan) 0.5 mg PO HS PRN PRN Reason: Insomnia Stop: 05/22/17 21:11 Lorazepam (Ativan) 0.5 mg PO Q6 PRN PRN Reason: Anixety/Agitation Stop: 05/22/17 21:11 Lorazepam (Ativan) 1 mg PO TID [facility] Last Admin: 05/09/17 17:10 Dose: 1 mg Magnesium Hydroxide (Milk Of Magnesia) 30 ml PO HS PRN PRN Reason: Constipation Thiamine HCl (Vitamin B1 Tab) 100 mg PO DAILY [facility] Last Admin: 05/09/17 09:29 Dose: 100 mg Trazodone HCl (Desyrel) 50 mg PO HS [facility] Results - Vital Signs Recent Vital Signs: Last Vital Signs Temp 97.1 F L 05/09/17 15:57 Pulse 79 05/09/17 15:57 Resp 20 05/09/17 15:57 BP 112/74 05/09/17 15:57 Pulse Ox 98 05/08/17 16:49 - Labs Result Diagrams: 05/08/17 15:05 05/09/17 05:30 Labs: Laboratory Results - last 24 hr 05/08/17 05/08/17 05/09/17 20:38 21:22 05:30 Sodium 140 Potassium 3.9 Chloride 104 Carbon Dioxide 29 Anion Gap 11 BUN 10 Creatinine 0.8 Est GFR ( Amer) > 60 Est GFR (Non-Af Amer) > 60 POC Glucose (mg/dL) 190 H 218 H Random Glucose 156 H Hemoglobin A1c Calcium 8.8 Iron TIBC % Saturation Ferritin 84.0 Triglycerides 260 H D Cholesterol 164 LDL Cholesterol Direct 83 HDL Cholesterol 47 Vitamin B12 919 Folate > 20.0 Free T4 Thyroxine (T4) 4.86 L TSH 3rd Generation 0.74 RPR 05/09/17 05/09/17 05/09/17 05:30 05:30 05:30 Sodium Potassium Chloride Carbon Dioxide Anion Gap BUN Creatinine Est GFR ( Amer) Est GFR (Non-Af Amer) POC Glucose (mg/dL) Random Glucose Hemoglobin A1c 8.5 H Calcium Iron 87 TIBC 356 % Saturation 25 Ferritin Triglycerides Cholesterol LDL Cholesterol Direct HDL Cholesterol Vitamin B12 Folate Free T4 0.57 L Thyroxine (T4) TSH 3rd Generation RPR 05/09/17 05/09/17 05/09/17 05:30 05:42 11:01 Sodium Potassium Chloride Carbon Dioxide Anion Gap BUN Creatinine Est GFR ( Amer) Est GFR (Non-Af Amer) POC Glucose (mg/dL) 146 H 200 H Random Glucose Hemoglobin A1c Calcium Iron TIBC % Saturation Ferritin Triglycerides Cholesterol LDL Cholesterol Direct HDL Cholesterol Vitamin B12 Folate Free T4 Thyroxine (T4) TSH 3rd Generation RPR Nonreactive Attending/Attestation - Attestation I have personally seen and examined this patient.: Yes I have fully participated in the care of the patient.: Yes I have reviewed all pertinent clinical information: Yes Notes (Text): 05/09/17 17:54 seen examined discussed with resident Dr. London Pretty, agree with findings and plan as above.
[2017-05-09] MEDS ORDERED: Insulin Lispro (humaLOG) 100 Units/ml Inj SC SCH (09:00)
--- NOTE | 2017-05-09 09:35 | PCM.PSYCH ---
Initial Psychiatric Evaluation - Initial Psychiatric Evaluation Type of Admission: Voluntary Legal Status: Capacity Chief Complaint (in patient's own words): "I told my family I was going to kill myself on facebook." Patient's Reaction to Hospitalization: HPI: 61 yo male w/ h/o alcohol use disorder, depression BID police after he posted on facebook that he was going to kill himself by cutting his wrists. He reports that he was intoxicated on alcohol at the time and is vague about how much he drinks, just stating "i drank a few beers." In other reports, he has stated that he drinks hard liquor daily. He denies currently having suicidal ideation and states that he said that due to being intoxicated. He denies AH/ VH. Patient has poor insight into the severity of the alcohol abuse. Collateral from patient's sister, [place], was obtained in the ER. She reports that the patient's family became concerned after her posted on facebook and called the police, who kicked in the patient's door and found him standing with a straight edge razor in his hand attempting to cut his wrist. Of note, patient did not actually cut himself, there are no warner. PPHx: Patient has had several admission for alcohol abuse and depression, last admitted in 01/11. Patient has a private psychiatrist, Dr. Baldemar Crook and was previously treated w/ Zoloft but was not complaint w/ treatment. H/o suicide attempts- As per patient, he has ingested 64 pills of sleeping pills over five years ago which he almost succeeded, and has taken aspirin at the age of [age] years old. 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 On disability. Lives alone. +severe alcohol abuse (says he drinks "a few beers" daily), denies drug/cig. Current Medications: Active Medications Generic Name Dose Route Start Last Admin Trade Name Freq PRN Reason Stop Dose Admin Acetaminophen 650 mg 05/08/17 21:10 Tylenol 325mg Tab PO Q4 PRN Pain, moderate (4-7) Al Hydrox/Mg Hydrox/Simethicone 30 ml 05/08/17 21:10 Maalox Plus 30 Ml PO Q4 PRN Dyspepsia Atorvastatin Calcium 20 mg 05/09/17 22:00 Lipitor PO HS [facility] Bismuth Subsalicylate 524 mg 05/08/17 21:10 Pepto-Bismol PO Q4 PRN Diarrhea Folic Acid 1 mg 05/09/17 09:00 Folic Acid PO DAILY [facility] Gabapentin 800 mg 05/09/17 09:00 Neurontin PO BID [facility] Insulin Detemir 80 units 05/09/17 22:00 Levemir SC HS [facility] Insulin Human Lispro 20 units 05/09/17 09:00 Humalog SC TID [facility] Insulin Human Lispro 0 units 05/09/17 11:30 Humalog SC ACHS [facility] Protocol Lorazepam 0.5 mg 05/08/17 21:10 Ativan PO 05/22/17 21:11 HS PRN Insomnia Lorazepam 0.5 mg 05/08/17 21:10 Ativan PO 05/22/17 21:11 Q6 PRN Anixety/Agitation Lorazepam 1 mg 05/09/17 09:00 05/09/17 08:48 Ativan PO 1 mg TID [facility] Administration Magnesium Hydroxide 30 ml 05/08/17 21:10 Milk Of Magnesia PO HS PRN Constipation Pneumococcal Polyvalent Vaccine 0.5 ml 05/09/17 10:00 Pneumovax 23 Vaccine IM 05/09/17 10:01 .ONCE ONE Thiamine HCl 100 mg 05/09/17 09:00 Vitamin B1 Tab PO DAILY [facility] Trazodone HCl 50 mg 05/09/17 22:00 Desyrel PO HS [facility] Past Psychiatric History - Past Psychiatric History Previous Treatment History: Inpatient Pertinent Medical Hx (Current Medical&Sleep Prob, Allergies): Allergies Allergy/AdvReac Type Severity Reaction Status Date / Time No Known Allergies Allergy Verified 05/04/17 04:02 Insulin Aspart [Novolog] 20 unit SC TID 12/06/16 Atorvastatin [Lipitor] 20 mg PO HS tab 03/02/17 Gabapentin [Neurontin] 800 mg PO BID cap 03/02/17 chlordiazePOXIDE [Chlordiazepoxide HCl] 25 mg PO Q6 PRN #4 cap 05/04/17 Benztropine [Cogentin] 0.5 mg PO Q12H 05/08/17 Exenatide Microspheres [Bydureon] 2 mg SC SAT 05/08/17 Insulin Detemir [Levemir] 80 units SC HS 05/08/17 LORazepam [Ativan] 1 mg PO Q6H PRN 05/08/17 Levomefolate/B6/B12/Algal Oil [Metanx Capsule] 1 cap PO DAILY 05/08/17 Sertraline [Zoloft] 100 mg PO HS 05/08/17 hydrOXYzine HCl [Atarax] 50 mg PO HS 05/08/17 Review of Systems - Psychiatric Psychiatric: As Per HPI, Abnormal Sleep Pattern, Behavioral Changes, Depression , Hopelessness, Irritability, Mood Swings Mental Status Examination - Personal Presentation Personal Presentation: Looks stated age - Affect Affect: Constricted - Motor Activity Motor Activity: Calm - Reliability in Providing Information Reliability in Providing Information: Fair - Speech Speech: Organized - Mood Mood: Depressed - Formal Thought Process Formal Thought Process: No Impairment - Hallucinations/Delusions Additional comments: No AH/VH/paranoia/delusions - Obsessions/Compulsions Obsessions: No Compulsions: No - Cognitive Functions Orientation: Person, Place, Situation, Time Sensorium: Alert Attention/Concentration: Attentive Judgement: Imparied, as evidence by: Poor judgement, Imparied, as evidence by: Lack of insight into illness Memory: Recent intact, as evidence by: Ability to recall events of the day, Remote intact, as evidenced by: Abilit to recall sig. life events, Remote intact , as evidenced by: Ability to recall historical events - Risk Risk: Suicidal - Strength & Assets Inventory Strength & Assets Inventory: Family support, Cooperative - Limitations Limitations: Living alone DSM 5 DX - DSM 5 DSM 5 Diagnosis: Alcohol Use Disorder; Substance induced mood disorder - Recommended/Plan of Treatment Treatment Recommendations and Plan of Treatment: Alcohol Use Disorder; Substance induced mood disorder; patient need acute inpatient psychiatric admission for treatment and safety -Admit to geriatric psychiatry unit -Individual and group therapy -Restart Trazodone 50 mg PO HS for depression and insomnia; patient unwilling to take any other antidepressant at this time -Ativan for ETOH w/drawal; will taper daily -Psychoeducation re: alcohol abuse -Disposition planning -No 1:1 needed at this time as the patient is able to contract for safety Projected ELOS: 5-8 days Discharge Plan and Discharge Criteria: Discharge when psychiatrically stable - Smoking Cessation Smoking Cessation Initiated: No Reason for not providing: Not indicated
[2017-05-09] MEDS ORDERED: Pneumococcal 23-Valent Vaccine IM ONE (10:00)
[2017-05-09] MEDS: Insulin Lispro (humaLOG) 100 Units/ml Inj SC SCH ×3 (12:09→21:12)
[2017-05-09 13:46] LABS: FOLATE > 20.0 ng/mL
[2017-05-09] MEDS: Insulin Detemir 100 Units/ml Inj SC SCH (21:13)
[2017-05-09] MEDS ORDERED: Insulin Detemir 100 Units/ml Inj SC SCH (22:00)
[2017-05-10] MEDS: Insulin Lispro (humaLOG) 100 Units/ml Inj SC SCH ×3 (08:16→16:13)
--- NOTE | 2017-05-10 10:00 | PCM.PYCHPN ---
Psychiatric Progress Note - Psychiatric Progress Note Patient seen today, length of contact: Patient evaluated, case discussed w/ team , chart reviewed Patient Chief Complaint: "I'm okay." Problems Identified/Issues Discussed: Patient continues to minimize his recent suicide attempt. He has poor insight into the severity of his chronic ETOH abuse. He denies current signs/symptoms of ETOH w/drawal. +Continued depression. +improved sleep due to trazodone. He denies current ideation to harm himself. Medication Change: No Medical Record Reviewed: Yes Consults ordered or reviewed: Medicine consult Mental Status Examination - Cognitive Function Orientation: Person, Place, Situation, Time Memory: Intact Attention: WNL Concentration: WNL Association: WNL Fund of Knowledge: [facility] Decription of patient's judgement and insights: Poor I/J - Mood Mood: Depressed - Affect Affect: Constricted - Formal Thought Process Formal Thought Process: No Impairment Psychotic Thoughts and Behaviors: No AH/VH/paranoia/delusions - Suicidal Ideation Suicidal Ideation: No - Homicidal Ideation Homicidal Ideation: No Goal/Treatment Plan - Goal/Treatment Plan Need for Continued Stay: Remain at risks for inpatient hospitalization, Severe depression anxiety, Discharge may exacerbated symptoms Progress Toward Problem(s) and Goals/Treatment Plan: Alcohol Use Disorder; Substance induced mood disorder; patient need acute inpatient psychiatric admission for treatment and safety -Individual and group therapy -Continue Trazodone 50 mg PO HS for depression and insomnia; patient unwilling to take any other antidepressant at this time -Ativan for ETOH w/drawal; will taper daily -Psychoeducation re: alcohol abuse -Disposition planning -No 1:1 needed at this time as the patient is able to contract for safety Estimated Date of D/C: 05/14/17
--- NOTE | 2017-05-10 19:33 | CARD ---
APPROVED REPORT EKG Measurement Heart [id number] <Conclusion> Normal sinus rhythm Minimal voltage criteria for LVH, may be normal variant Borderline ECG
[2017-05-10] MEDS: Insulin Detemir 100 Units/ml Inj SC SCH (21:18)
[2017-05-11] MEDS: Insulin Lispro (humaLOG) 100 Units/ml Inj SC SCH ×4 (08:12→21:08)
--- NOTE | 2017-05-11 09:29 | PCM.PYCHPN ---
Psychiatric Progress Note - Psychiatric Progress Note Patient seen today, length of contact: Patient evaluated, case discussed w/ team , chart reviewed Patient Chief Complaint: "I'm okay." Problems Identified/Issues Discussed: Patient continues to minimize his recent suicide attempt. He has poor insight into the severity of his chronic ETOH abuse. He denies current signs/symptoms of ETOH w/drawal. +Continued depression. +improved sleep due to trazodone. He denies current ideation to harm himself. Medication Change: No Medical Record Reviewed: Yes Mental Status Examination - Cognitive Function Orientation: Person, Place, Situation, Time Memory: Intact Attention: WNL Concentration: WNL Association: WNL Fund of Knowledge: [facility]N Decription of patient's judgement and insights: Poor I/J - Mood Mood: Depressed - Affect Affect: Constricted - Formal Thought Process Formal Thought Process: No Impairment Psychotic Thoughts and Behaviors: No AH/VH/paranoia/delusions - Suicidal Ideation Suicidal Ideation: No - Homicidal Ideation Homicidal Ideation: No Goal/Treatment Plan - Goal/Treatment Plan Need for Continued Stay: Remain at risks for inpatient hospitalization, Severe depression anxiety, Discharge may exacerbated symptoms Progress Toward Problem(s) and Goals/Treatment Plan: Alcohol Use Disorder; Substance induced mood disorder; patient need acute inpatient psychiatric admission for treatment and safety -Individual and group therapy -Continue Trazodone 50 mg PO HS for depression and insomnia; patient unwilling to take any other antidepressant at this time -Ativan for ETOH w/drawal; will taper daily -Psychoeducation re: alcohol abuse -Disposition planning -No 1:1 needed at this time as the patient is able to contract for safety Estimated Date of D/C: 05/14/17
--- NOTE | 2017-05-11 09:52 | PCM.PYCHPN ---
Psychiatric Progress Note - Psychiatric Progress Note Patient seen today, length of contact: Patient evaluated, case discussed w/ team , chart reviewed Patient Chief Complaint: "I'm okay." Problems Identified/Issues Discussed: Patient continues to have poor insight into his chronic ETOH abuse. Denies current SI/HI. +Constricted affect and spends most of his time in his room. He denies current signs/symptoms of ETOH w/drawal. +Continued depression. + improved sleep due to trazodone. Medication Change: Yes (Taper Ativan) Medical Record Reviewed: Yes Consults ordered or reviewed: Medicine consult Mental Status Examination - Cognitive Function Orientation: Person, Place, Situation, Time Memory: Intact Attention: WNL Concentration: WNL Association: WNL Fund of Knowledge: [facility] Decription of patient's judgement and insights: Poor I/J - Mood Mood: Depressed - Affect Affect: Constricted - Formal Thought Process Formal Thought Process: No Impairment Psychotic Thoughts and Behaviors: No AH/VH/paranoia/delusions - Suicidal Ideation Suicidal Ideation: No - Homicidal Ideation Homicidal Ideation: No Goal/Treatment Plan - Goal/Treatment Plan Need for Continued Stay: Remain at risks for inpatient hospitalization, Severe depression anxiety, Discharge may exacerbated symptoms Progress Toward Problem(s) and Goals/Treatment Plan: Alcohol Use Disorder; Substance induced mood disorder; patient need acute inpatient psychiatric admission for treatment and safety -Individual and group therapy -Continue Trazodone 50 mg PO HS for depression and insomnia; patient unwilling to take any other antidepressant at this time -Ativan for ETOH w/drawal; will taper daily -Psychoeducation re: alcohol abuse -Disposition planning- possible discharge Sunday if patient improves over the weekend. -No 1:1 needed at this time as the patient is able to contract for safety Estimated Date of D/C: 05/14/17
[2017-05-11] MEDS: Insulin Detemir 100 Units/ml Inj SC SCH (21:05)
[2017-05-12] MEDS: Insulin Lispro (humaLOG) 100 Units/ml Inj SC SCH ×4 (09:03→21:15)
--- NOTE | 2017-05-12 15:25 | PCM.PYCHPN ---
Psychiatric Progress Note - Psychiatric Progress Note Patient seen today, length of contact: Patient evaluated, case discussed w/ team , chart reviewed Patient Chief Complaint: reports is beginning to feel calmer, less anxious, denies complaints of etoh w/ drawal, staff report pt has been adherent with medications, continues to be up for meal, completes adls Problems Identified/Issues Discussed: alteration in mood (reports is improving although remains in room majority of time), alteration in coping (chronic etoh-denies withdrawal although appears to minimize possible effects mood/coping form)i Medical Problems: per chart Diagnostic Results: per psychiatry per medicine per nursing per social service manager Medication Change: No (Taper Ativan) Medical Record Reviewed: Yes Consults ordered or reviewed: pt being followed by hospitalist Mental Status Examination - Cognitive Function Orientation: Person, Place, Situation, Time Memory: Intact Attention: WNL Concentration: WNL Association: WNL Fund of Knowledge: WNL - Mood Mood: Depressed - Affect Affect: Constricted - Formal Thought Process Formal Thought Process: No Impairment - Suicidal Ideation Suicidal Ideation: No - Homicidal Ideation Homicidal Ideation: No Goal/Treatment Plan - Goal/Treatment Plan Need for Continued Stay: Remain at risks for inpatient hospitalization, Severe depression anxiety, Discharge may exacerbated symptoms Estimated Date of D/C: 05/14/17
[2017-05-12] MEDS: Insulin Detemir 100 Units/ml Inj SC SCH (21:10)
[2017-05-13] MEDS: Insulin Lispro (humaLOG) 100 Units/ml Inj SC SCH ×4 (09:31→21:10)
[2017-05-13] MEDS: Insulin Detemir 100 Units/ml Inj SC SCH (21:12)
--- NOTE | 2017-05-13 21:58 | PCM.PYCHPN ---
Psychiatric Progress Note - Psychiatric Progress Note Patient seen today, length of contact: Patient evaluated, case discussed w/ team , chart reviewed Patient Chief Complaint: reports is beginning to feel calmer, less anxious, denies complaints of etoh w/ drawal, staff report pt has been adherent with medications, continues to be up for meal, completes adls Problems Identified/Issues Discussed: alteration in mood (reports is improving although remains in room majority of time), alteration in coping (chronic etoh-denies withdrawal although appears to minimize possible effects mood/coping form)i Medical Problems: per chart Diagnostic Results: per psychiatry per medicine per nursing per social work instructor DSM 5 Symptoms Update: alteration in mood alteration in coping substance use etoh hx Medication Change: No (Taper Ativan) Medical Record Reviewed: Yes Consults ordered or reviewed: hospitalist Mental Status Examination - Cognitive Function Orientation: Person, Place, Situation, Time Memory: Intact Attention: WNL Concentration: WNL Association: WNL Fund of Knowledge: WN Decription of patient's judgement and insights: impaired - Mood Mood: Depressed - Affect Affect: Constricted - Formal Thought Process Formal Thought Process: No Impairment - Suicidal Ideation Suicidal Ideation: No - Homicidal Ideation Homicidal Ideation: No Goal/Treatment Plan - Goal/Treatment Plan Need for Continued Stay: Remain at risks for inpatient hospitalization, Severe depression anxiety, Discharge may exacerbated symptoms Progress Toward Problem(s) and Goals/Treatment Plan: inpt milieu adjust meds per status decrease standing lorazepam to 0.25mg po bid starting am vital signs and clinical observation per protocol and per clinical status discharge planning in progress Estimated Date of D/C: 05/14/17 - Smoking Cessation Smoking Cessation Initiated: No Reason for not providing: pt defers
[2017-05-14 05:43] VITALS: BP 105/78; PULSE 79; RESP 18; TEMP 97.6
--- NOTE | 2017-05-14 08:12 | PCM.PYCHDC ---
Mental Status Examination - Mental Status Examination Orientation: Person, Place, Situation, Time Memory: Intact Mood: Neutral Affect: Broad Speech: Appropriate Attention: WNL Concentration: WNL Association: WNL Fund of Knowledge: WNL Formal Thought Process: No Impairment Description of patient's judgement and insight: Fair I/J; psychoeducation provided re: dangers of ETOH abuse Psychotic Thoughts and Behaviors: No AH/VH/paranoia/delusions Suicidal Ideation: No Current Homicidal Ideation?: No Discharge Summary - Discharge Note Reason for Hospitalization: HPI: 61 yo male w/ h/o alcohol use disorder, depression BID police after he posted on facebook that he was going to kill himself by cutting his wrists. He reports that he was intoxicated on alcohol at the time and is vague about how much he drinks, just stating "i drank a few beers." In other reports, he has stated that he drinks hard liquor daily. He denies currently having suicidal ideation and states that he said that due to being intoxicated. He denies AH/ VH. Patient has poor insight into the severity of the alcohol abuse. Collateral from patient's sister, [place], was obtained in the ER. She reports that the patient's family became concerned after her posted on facebook and called the police, who kicked in the patient's door and found him standing with a straight edge razor in his hand attempting to cut his wrist. Of note, patient did not actually cut himself, there are no warner. PPHx: Patient has had several admission for alcohol abuse and depression, last admitted in 01/11. Patient has a private psychiatrist, Dr. Baldemar Crook and was previously treated w/ Zoloft but was not complaint w/ treatment. H/o suicide attempts- As per patient, he has ingested 64 pills of sleeping pills over five years ago which he almost succeeded, and has taken aspirin at the age of [age] years old. 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 On disability. Lives alone. +severe alcohol abuse (says he drinks "a few beers" daily), denies drug/cig. Laboratory Data: Abnormal Lab Results 05/13/17 05/13/17 05/13/17 11:10 15:32 20:07 POC Glucose (mg/dL) 200 H 209 H 190 H 05/14/17 05:29 POC Glucose (mg/dL) 159 H Consultations:: List each consultation separately and include: 1. Reason for request. 2. Findings. 3. Follow-up Consultations: Medicine consult Summary of Hospital Course include:: 1. Description of specific treatment plan utilized for patients during their course of treatmen. 2. Summarize the time- course for resolution of acute symptoms and/or regressed behaviors. 3. Describe issues identified and worked on during hospitalization. 4. Describe medication utilized. 5. Describe medical problems identified and treated. 6. Reassessment of suicide risk Summary of Hospital Course: Patient was admitted to the psychiatric unit. He was stabilized on Trazodone 50 mg PO Hs. He was treated w/ Ativan to prevent ETOH w/drawal and gradually tapered off. No current signs/symptoms of ETOH w/drawal. No ideation to harm self or others. No psychotic symptoms. Patient is psychiatrically stable for discharge. - Diagnosis (1) Alcohol use disorder Current Visit: No Status: Chronic (2) Substance induced mood disorder Current Visit: Yes Status: Chronic - Final Diagnosis (DSM 5) Condition upon Discharge: STABLE DSM 5: Substance Induced Mood Disorder; Alcohol Use Disorder Disposition: HOME/ ROUTINE Follow-up Treatment Plan: Patient is psychiatrically stable for discharge w/ outpatient follow-up. Prescriptions/Medication Reconciliation: Folic Acid 1 mg PO DAILY #30 tab Thiamine [Vitamin B1 Tab] 100 mg PO DAILY #30 tab traZODone [Desyrel] 50 mg PO HS #30 tab - Smoking Cessation Smoking Cessation Medication prescribed: No Reason for not providing: Not indicated - Antipsychotic Medications Pt discharged on 2 or more routine antipsychotic medications: No
[2017-05-14] MEDS: Insulin Lispro (humaLOG) 100 Units/ml Inj SC SCH (08:49)
== END 2017-05-14 10:46 | disposition home or self-care (01) | DRG 897 ==
LOC: H.ER 14:13 → H.ERHOLD 16:44 → H.STEP 20:55
PROVIDERS: ADMIT Psychiatry & Neurology Psychiatry; ATTEND Psychiatry & Neurology Psychiatry
PROC: GZHZZZZ Group Psychotherapy (ICD-10-PCS; principal; 2017-05-09)
PROC: GZ51ZZZ Individual Psychotherapy, Behavioral (ICD-10-PCS; 2017-05-09)
PROC: 3E0234Z Introduction of Serum, Toxoid and Vaccine into Muscle, Percutaneous Approach (ICD-10-PCS; 2017-05-09)
DX: F19.94 Other psychoactive substance use, unspecified with psychoactive substance-induced mood disorder (principal); F10.239 Alcohol dependence with withdrawal, unspecified; E11.9 Type 2 diabetes mellitus without complications; F31.9 Bipolar disorder, unspecified; F43.10 Post-traumatic stress disorder, unspecified; G47.00 Insomnia, unspecified; H91.92 Unspecified hearing loss, left ear; N40.0 Benign prostatic hyperplasia without lower urinary tract symptoms; Z90.49 Acquired absence of other specified parts of digestive tract; F41.9 Anxiety disorder, unspecified; H26.9 Unspecified cataract; E78.00 Pure hypercholesterolemia, unspecified; F17.290 Nicotine dependence, other tobacco product, uncomplicated; Z23 Encounter for immunization